=== PATIENT | female | born 1935 | race Caucasian/White ===

== ENCOUNTER → 2016-06-16 | Outpatient (CLI) | payer MEDICARE, OTHER | LOC: RAD 08:03 | PROVIDERS: ATTEND Orthopaedic Surgery | DX: T84.092A Other mechanical complication of internal right knee prosthesis, initial encounter (principal) | CPT/HCPCS: 78315; A9503; Q9969 ==

== ENCOUNTER 2017-04-17 15:41 | Emergency (ER) | payer MEDICARE, OTHER ==
--- NOTE | 2017-04-17 16:42 | ER Document Report ---
ED General - General Chief Complaint: Flu Symptoms Stated Complaint: FLU SYMPTOMS Time Seen by Provider: 04/17/17 15:46 Mode of Arrival: Medic Information source: Patient TRAVEL OUTSIDE OF THE [place] IN LAST 30 DAYS: No - HPI Notes: 81-year-old female presents with generalized malaise weakness and eventually nausea and vomiting after faith today. She has vomited multiple times. EMS brings her in after giving her Zofran 4 mg. She has had some dysuria and went to go get her Cipro refilled. 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 She denies any specific pain. No diarrhea. Some mild cough and chills but no objective fever. She denies chest pain or breathing difficulty. - Related Data Allergies/Adverse Reactions: No Known Allergies Allergy (Verified 04/17/17 16:11) Past Medical History - Social History Smoking Status: Never Smoker Family History: Reviewed & Not Pertinent Review of Systems - Review of Systems -: Yes All other systems reviewed and negative Physical Exam - Vital signs Vitals: Temp Pulse BP Pulse Ox 99.4 F 129 H 144/72 H 94 04/17/17 16:10 04/17/17 16:10 04/17/17 16:10 04/17/17 16:10 Interpretation: Tachycardic - Notes Notes: GENERAL: VS as per nursing doc. Well-appearing, well-nourished and in no acute distress. HEAD: Atraumatic, normocephalic. EYES: Pupils equal round and reactive to light, extraocular movements intact, sclera anicteric, no conjunctival injection or discharge. ENT: Nares patent, oropharynx clear without exudates, somewhat dry mucous membranes. NECK: Normal range of motion, supple without lymphadenopathy. LUNGS: Breath sounds clear to auscultation bilaterally and equal. No wheezes rales or rhonchi. HEART: Tachycardic but regular without murmurs. ABDOMEN: Soft, very mild generalized tenderness, normoactive bowel sounds. No guarding, no rebound. No masses appreciated. No [place] sign. BACK: No CVA tenderness. EXTREMITIES: No significant pitting edema NEUROLOGICAL: No meningeal signs.. Normal speech. Normal sensory and motor exams. No gross cerebellar abnormalities. PSYCH: Normal mood, normal affect. SKIN: Warm, dry, normal turgor. Course - Re-evaluation Re-evalutation: 04/17/17 19:39 Patient is feeling much better. Nausea is completely resolved. Abdomen is benign on recheck. She understands warning signs to watch for. At this time, we will discharge the patient with return precautions and follow-up recommendations discussed and understood. Verbal discharge instructions given at the bedside and opportunity for questions given and answered. Medication warnings reviewed. Patient and family is in agreement with this plan and has verbalized understanding of return precautions and the need for primary care follow-up in the next 24-48 hours. 04/17/17 20:00 - Vital Signs Vital signs: Temp Pulse Resp BP Pulse Ox 99.9 F 129 H 128/91 H 93 04/17/17 17:19 04/17/17 16:10 04/17/17 18:01 04/17/17 18:01 - Laboratory Result Diagrams: 04/17/17 17:45 04/17/17 18:15 Laboratory results interpreted by me: 04/17/17 04/17/17 04/17/17 16:07 17:45 18:15 WBC 18.6 H RDW 14.4 H Plt Count 130 L Seg Neuts % (Manual) 89 H Lymphocytes % (Manual) 4 L Monocytes % (Manual) 2 L Abs Neuts (Manual) 17.3 H Sodium 134.2 L Potassium 3.5 L Chloride 97 L Glucose 138 H Direct Bilirubin 0.5 H Urine Protein 100 H Urine Blood LARGE H Urine Nitrite POSITIVE H Ur Leukocyte Esterase LARGE H - Diagnostic Test Radiology reviewed: Image reviewed, Reports reviewed - No acute process noted. - EKG Interpretation by Me Rate: Tachycardia - Rate 116. Right bundle branch block. Nonspecific ST abnormalities but no clear ischemia otherwise. Discharge - Discharge Clinical Impression: Vomiting, UTI (urinary tract infection) Condition: Good Disposition: HOME, SELF-CARE Instructions: Antinausea Medication ([facility]), Urinary Tract Infection ([facility]), Vomiting ([facility]) Additional Instructions: Please contact your physician to arrange follow-up tomorrow. Start the antibiotics tomorrow. Return for any worsening or other concern, repetitive vomiting. A urine culture will take a couple of days to get the results back. May use the nausea medication, Zofran, as directed. Prescriptions: Ciprofloxacin HCl [Cipro 500 mg Tablet] 500 mg PO BID #20 tablet Ondansetron [Zofran Odt 4 mg Tablet] 1 - 2 tab PO Q4H PRN #15 tab.rapdis PRN Reason: For Nausea/Vomiting Referrals: ANDRE AMARO MD [Primary Care Provider] - Follow up as needed
[2017-04-17] MEDS ORDERED: NORMAL SALINE 1000 ML 1,000 ML IV ONE (16:44)
[2017-04-17 17:19] LABS: APPEARANCE,URINE CLOUDY; BILIRUBIN,URINE NEGATIVE (NEGATIVE); COLOR,URINE YELLOW; GLUCOSE, URINE NEGATIVE (NEGATIVE); KETONES,URINE NEGATIVE (NEGATIVE); LEUKOCYTE ESTERASE,URINE LARGE (NEGATIVE); NITRITE,URINE POSITIVE (NEGATIVE); PROTEIN,URINE 100 mg/dL (NEGATIVE); UROBILINOGEN,URINE NEGATIVE mg/dL (<2.0)
--- NOTE | 2017-04-17 17:23 | RADIOLOGY REPORT (SQ) ---
EXAM DESCRIPTION: CHEST PA/LAT COMPLETED DATE/TIME: 04/17/2017 5:09 pm REASON FOR STUDY: Fever COMPARISON: 06/15/2010. EXAM PARAMETERS: NUMBER OF VIEWS: two views TECHNIQUE: Digital Frontal and Lateral radiographic views of the chest acquired. RADIATION DOSE: NA LIMITATIONS: none FINDINGS: LUNGS AND PLEURA: No opacities, masses or pneumothorax. No pleural effusion. MEDIASTINUM AND HILAR STRUCTURES: No masses or contour abnormalities. HEART AND VASCULAR STRUCTURES: Heart normal size. No evidence for failure. BONES: No acute findings. HARDWARE: None in the chest. OTHER: No other significant finding. IMPRESSION: NO SIGNIFICANT RADIOGRAPHIC FINDING IN THE CHEST. TECHNICAL DOCUMENTATION: JOB ID: [id number] [employer]- All Rights Reserved
[2017-04-17] MEDS ORDERED: CEFTRIAXONE 1 GM/D5W RTU 1 GM/50 ML RTUPB IV ONE ×2 (17:52→18:46)
[2017-04-17 17:57] LABS: HEMATOCRIT 43.2 % (36.0-47.0); HEMOGLOBIN 14.8 g/dL (12.0-15.5); MEAN CORPUSCULAR HEMOGLOBIN 30.1 pg (27.0-33.4); MEAN CORPUSCULAR HGB CONC 34.3 g/dL (32.0-36.0); MEAN CORPUSCULAR VOLUME 88 fl (80-97); PLATELET COUNT 130 10^3/uL (150-450); RED BLOOD COUNT 4.92 10^6/uL (3.72-5.28); RED CELL DISTRIBUTION WIDTH 14.4 % (11.5-14.0); WHITE BLOOD COUNT 18.6 10^3/uL (4.0-10.5)
[2017-04-17 18:23] LABS: ABSOLUTE LYMPHOCYTES# (MANUAL) 0.7 10^3/uL (0.5-4.7); ABSOLUTE MONOCYTES # (MANUAL) 0.4 10^3/uL (0.1-1.4); ABSOLUTE NEUTROPHILS# (MANUAL) 17.3 10^3/uL (1.7-8.2); BAND NEUTROPHILS % (MANUAL) 4 % (3-5); BASOPHILS % (MANUAL) 0 % (0-2); EOSINOPHILS % (MANUAL) 1 % (0-6); LYMPHOCYTES % (MANUAL) 4 % (13-45); MONOCYTES % (MANUAL) 2 % (3-13); SEGMENTED NEUTROPHILS % (MAN) 89 % (42-78); TOTAL CELLS COUNTED 100
[2017-04-17 18:24] LABS: PLATELET CLUMPS PRESENT; PLATELET COMMENT ADEQUATE; RBC MORPHOLOGY COMMENT NORMO-CYTIC/CHROMIC
[2017-04-17 18:34] LABS: A TYPE INFLUENZA AG NEGATIVE (NEGATIVE); B INFLUENZA AG NEGATIVE (NEGATIVE)
[2017-04-17] MEDS ORDERED: CEFTRIAXONE INJ 1000 MG VIAL ONE ×2 (18:48→20:22)
[2017-04-17 19:21] LABS: ALANINE AMINOTRANSFERASE 39 U/L (9-52); ALBUMIN 4.1 g/dL (3.5-5.0); ALKALINE PHOSPHATASE 82 U/L (38-126); ANION GAP 12 (5-19); ASPARTATE AMINO TRANSFERASE 28 U/L (14-36); BILIRUBIN,DIRECT 0.5 mg/dL (0.0-0.4); BLOOD UREA NITROGEN 16 mg/dL (7-20); CALCIUM 9.8 mg/dL (8.4-10.2); CARBON DIOXIDE 25 mmol/L (22-30); CHLORIDE 97 mmol/L (98-107); GLUCOSE 138 mg/dL (75-110); LIPASE 293.2 U/L (23-300); POTASSIUM 3.5 mmol/L (3.6-5.0); SODIUM 134.2 mmol/L (137-145); TOTAL PROTEIN 6.4 g/dL (6.3-8.2)
[2017-04-17] MEDS ORDERED: CIPROFLOXACIN HCL 750 MG TABLET PO ONE (19:37)
[2017-04-17] MEDS ORDERED: ONDANSETRON 4 MG TAB.RAPDIS PO ONE (19:38)
--- NOTE | 2017-04-17 19:50 | EKG REPORT ---
SEVERITY:- ABNORMAL ECG - SINUS TACHYCARDIA RIGHT BUNDLE BRANCH BLOCK PROBABLE INFERIOR INFARCT, AGE INDETERMINATE : Confirmed by: Lei Ibrahim 17-Apr-2017 19:49:54
[2017-04-17 20:27] VITALS: BP 123/58
== END 2017-04-17 20:47 | disposition home or self-care (01) ==
LOC: ER 15:41
DX: N39.0 Urinary tract infection, site not specified (principal); R11.2 Nausea with vomiting, unspecified; R05 Cough; R53.81 Other malaise
CPT/HCPCS: 93005; 99284; 96365; 36415; 87040; 87086; 83690; 85025; 87088; 80053; 81001; 87186; 83605; 87804; 71046; 93010; A9270 ×2; J0696; J7030; J3490; S0119

== ENCOUNTER 2018-10-09 10:19 | Inpatient (IN) | payer MEDICARE, OTHER ==
--- NOTE | 2018-10-09 10:50 | RADIOLOGY REPORT (SQ) ---
EXAM DESCRIPTION: CT HEAD WITHOUT COMPLETED DATE/TIME: 10/09/2018 10:38 am REASON FOR STUDY: charlottediontee s/s COMPARISON: None. TECHNIQUE: Axial images acquired through the brain without intravenous contrast. Images reviewed wi th bone, brain and subdural windows. Additional sagittal and coronal reconstructions were generated. Images stored on PACS. All CT scanners at this facility use dose modulation, iterative reconstruction, and/or weight based d osing when appropriate to reduce radiation dose to as low as reasonably achievable (ALARA). [facility]: Dose Right [facility]: CareDose [facility]: Dose Right [facility]: Teradose 4D [facility]: Portable Internet RADIATION DOSE: CT Rad equipment meets quality standard of care and radiation dose reduction techniq ues were employed. CTDIvol: 53.2 mGy. DLP: 1017 mGy-cm. mGy. LIMITATIONS: None. FINDINGS: VENTRICLES: Prominent. CEREBRUM: No masses. No hemorrhage. No midline shift. Areas of low density in the white matter mos t likely due to chronic micro-vascular ischemic change. No evidence for acute infarction. CEREBELLUM: No masses. No hemorrhage. No alteration of density. No evidence for acute infarction. EXTRAAXIAL SPACES: Mild age-related involutional change. No fluid collections. No masses. ORBITS AND GLOBE: No intra- or extraconal masses. Normal contour of globe without masses. CALVARIUM: No fracture. PARANASAL SINUSES: No fluid or mucosal thickening. SOFT TISSUES: No mass or hematoma. OTHER: No other significant finding. IMPRESSION: MILD CHRONIC CHANGES OF ATROPHY AND MICROVASCULAR ISCHEMIA. NO ACUTE PROCESS. EVIDENCE OF ACUTE STROKE: NO. COMMENT: Pertinent positive or negative findings of the imaging study reported as a CRITICAL EXAM t o Dr Dudley at10:40 on 10/09/2018. Category of Critical Exam: Stroke alert. TECHNICAL DOCUMENTATION: JOB ID: [id number] Quality ID # [id number]: Final reports with documentation of one or more dose reduction techniques (e.g., Au tomated exposure control, adjustment of the mA and/or kV according to patient size, use of iterative reconstruction technique) 2010 [employer]- All Rights Reserved Reading location - IP/workstation name: [email or web address]
[2018-10-09 10:59] LABS: ABSOLUTE EOSINOPHILS # (AUTO) 0.1 10^3/uL (0.0-0.6); ABSOLUTE LYMPHOCYTES (AUTO) 1.3 10^3/uL (0.5-4.7); ABSOLUTE MONOCYTES (AUTO) 0.7 10^3/uL (0.1-1.4); ABSOLUTE NEUT (AUTO) 5.5 10^3/uL (1.7-8.2); BASOPHILS % (AUTO) 0.4 % (0-2); EOSINOPHILS % (AUTO) 0.7 % (0-6); HEMATOCRIT 44.9 % (36.0-47.0); HEMOGLOBIN 15.3 g/dL (12.0-15.5); LYMPHOCYTES % (AUTO) 16.7 % (13-45); MEAN CORPUSCULAR HEMOGLOBIN 29.9 pg (27.0-33.4); MEAN CORPUSCULAR HGB CONC 34.2 g/dL (32.0-36.0); MEAN CORPUSCULAR VOLUME 88 fl (80-97); MONOCYTES % (AUTO) 9.8 % (3-13); PLATELET COUNT 134 10^3/uL (150-450); RED BLOOD COUNT 5.13 10^6/uL (3.72-5.28); RED CELL DISTRIBUTION WIDTH 14.3 % (11.5-14.0); SEGMENTED NEUTROPHILS % (AUTO) 72.4 % (42-78); TOTAL CELLS COUNTED % (AUTO) 100 %; WHITE BLOOD COUNT 7.5 10^3/uL (4.0-10.5)
[2018-10-09 11:02] LABS: INTERNATIONAL RATION (INR) 0.99
[2018-10-09 11:03] LABS: PARTIAL THROMBOPLASTIN TIME 26.5 SEC (23.5-35.8)
[2018-10-09 11:05] LABS: PROTHROMBIN TIME 13.1 SEC (11.4-15.4)
--- NOTE | 2018-10-09 11:25 | RADIOLOGY REPORT (SQ) ---
EXAM DESCRIPTION: CHEST SINGLE VIEW COMPLETED DATE/TIME: 10/09/2018 10:39 am REASON FOR STUDY: destinee s/s COMPARISON: None. EXAM PARAMETERS: NUMBER OF VIEWS: One view. TECHNIQUE: Single frontal radiographic view of the chest acquired. RADIATION DOSE: NA LIMITATIONS: None. FINDINGS: LUNGS AND PLEURA: No opacities, masses or pneumothorax. No pleural effusion. MEDIASTINUM AND HILAR STRUCTURES: No masses. Contour normal. HEART AND VASCULAR STRUCTURES: Heart normal in size. Normal vasculature. BONES: No acute findings. HARDWARE: None in the chest. OTHER: No other significant finding. IMPRESSION: NO ACUTE RADIOGRAPHIC FINDING IN THE CHEST. TECHNICAL DOCUMENTATION: JOB ID: [id number] [employer]- All Rights Reserved Reading location - IP/workstation name: [email or web address]
--- NOTE | 2018-10-09 12:13 | ER Document Report ---
ED General - General Chief Complaint: Weakness Stated Complaint: WEAKNESS Time Seen by Provider: 10/09/18 11:29 Notes: Patient is a 82-year-old female with history of CVA and borderline diabetes that presents to the emergency department for chief complaint of left-sided weakness. Patient states that around 4 AM this morning, she got up and felt like her legs gave out from under her, and she fell onto her buttocks. She denies having any head injury or neck injury, but states that she is been having weakness in her left arm and leg at that time, and had left-sided facial numbness and tingling as well as slurred speech. Her symptoms have improved since then, but she still having numbness and weakness in her left leg. She states she is had a stroke in the past, but does not recall what symptoms she had but as many years ago. She denies history of atrial fibrillation or being on any blood thinners currently. Denies having any chest pain, shortness of breath, difficulty breathing, nausea, vomiting or abdominal pain. She describes having a mild headache at this time scrubs as a 2 out of 10, no other complaints. Past Medical History: Diabetes mellitus, history of CVA Past Surgical History: Cholecystectomy Social History: Denies tobacco, alcohol or drug use. Family History: Reviewed and noncontributory for presenting illness Allergies: Reviewed, see documented allergy list. REVIEW OF SYSTEMS: Other than noted above, the 12 point review of systems was reviewed with the patient and were negative, all pertinent findings are included in the HPI. PHYSICAL EXAMINATION: Vital signs reviewed, nursing noted reviewed. GENERAL: Elderly female, no acute distress. HEAD: Atraumatic, normocephalic. EYES: Eyes appear normal, extraocular movements intact, sclera anicteric, conjunctiva are normal. PERRLA ENT: nares patent, oropharynx clear without exudates. Moist mucous membranes. NECK: Normal range of motion, supple without lymphadenopathy LUNGS: Breath sounds clear to auscultation bilaterally and equal. No wheezes rales or rhonchi. HEART: Regular rate and rhythm without murmurs ABDOMEN: Soft, nontender, normoactive bowel sounds. No rebound, guarding, or rigidity. No masses appreciated. EXTREMITIES: Nontender, good range of motion, no pitting or edema. NEUROLOGICAL: Noted to have decreased sensation in the left lower extremity, and weakness with flexion at the hip, her NIH stroke scale score: 3, she does have movement against gravity, is able to flex and extend at the ankle. She does have sensory discrepancies with both light and sharp touch in the lower extremities. No noted facial droop, or dysarthria or aphasia, normal vtzcry-[id number]-tqitba testing and heel mclean testing. No appreciated inattention. PSYCH: Normal mood, normal affect. SKIN: Warm, Dry, normal turgor, no rashes or lesions noted on exposed skin TRAVEL OUTSIDE OF THE [place] IN LAST 30 DAYS: No - Related Data Allergies/Adverse Reactions: No Known Allergies Allergy (Verified 04/17/17 16:11) Past Medical History - Social History Smoking Status: Former Smoker Frequency of alcohol use: None Drug Abuse: None Family History: Reviewed & Not Pertinent Patient has suicidal ideation: No Patient has homicidal ideation: No - Past Medical History Cardiac Medical History: Reports: Hx Hypertension Endocrine Medical History: Reports: Hx Diabetes Mellitus Type 2 - prediabetic Renal/ Medical History: Denies: Hx Peritoneal Dialysis Past Surgical History: Reports: Hx Orthopedic Surgery - bilater feet, right knee, left arm, right shoulder Physical Exam - Vital signs Vitals: Resp Pulse Ox 14 98 10/09/18 10:23 10/09/18 10:23 Course - Re-evaluation Re-evalutation: Patient seen and examined vital signs reviewed. Laboratory data and imaging were ordered as appropriate for the patient's presenting symptoms and complaint, with consideration of any critical or life threatening conditions that may be associated with their obtained history and exam as noted above. Results were reviewed when available and demonstrated essentially unremarkable blood work, negative troponin, CT imaging of the head was negative, and a negative chest x-ray. The patient was re-evaluated and was stable, seeming her symptoms were improving from earlier, but she does have some residual deficits, concerning for acute C VA. Evaluation was most consistent with acute CVA, with left lower extremity weakness and numbness. She is out of the window for TPA, given that her symptoms occurred at 4 AM this morning, her last seen normal is likely earlier than that, and her symptoms are improving, her blood pressure was noted to be elevated, in the 200 systolic, will not treat at this time, for permissive hypertension. Results were discussed with the patient at this point after careful consideration I feel that that patient should be admitted to the hospital. This was discussed with the patient that it is in the best interest for their care to be admitted for further evaluation and management. Patient agreed with this plan of care. A call was placed to the admitting provider Cindy Ellsworth CNP who graciously accepted the patient onto their service. *Note is created using voice recognition software and may contain spelling, syntax or grammatical errors. Laboratory 10/09/18 10/09/18 10/09/18 10:48 10:48 10:48 WBC 7.5 RBC 5.13 Hgb 15.3 Hct 44.9 MCV 88 MCH 29.9 MCHC 34.2 RDW 14.3 H Plt Count 134 L Seg Neutrophils % 72.4 Lymphocytes % 16.7 Monocytes % 9.8 Eosinophils % 0.7 Basophils % 0.4 Absolute Neutrophils 5.5 Absolute Lymphocytes 1.3 Absolute Monocytes 0.7 Absolute Eosinophils 0.1 Absolute Basophils 0.0 PT 13.1 INR 0.99 APTT 26.5 Sodium Cancelled Potassium Cancelled Chloride Cancelled Carbon Dioxide Cancelled Anion Gap Cancelled BUN Cancelled Creatinine Cancelled Est GFR ( Amer) Cancelled Est GFR (Non-Af Amer) Cancelled Glucose Cancelled POC Glucose Calcium Cancelled Total Bilirubin Cancelled Direct Bilirubin Cancelled Neonat Total Bilirubin Cancelled Neonat Direct Bilirubin Cancelled Neonat Indirect Bili Cancelled AST Cancelled ALT Cancelled Alkaline Phosphatase Cancelled Creatine Kinase Cancelled CK-MB (CK-2) Troponin I Total Protein Cancelled Albumin Cancelled 10/09/18 10/09/18 10/09/18 10:48 11:12 11:35 WBC RBC Hgb Hct MCV MCH MCHC RDW Plt Count Seg Neutrophils % Lymphocytes % Monocytes % Eosinophils % Basophils % Absolute Neutrophils Absolute Lymphocytes Absolute Monocytes Absolute Eosinophils Absolute Basophils PT INR APTT Sodium 135.8 L Potassium 4.4 Chloride 102 Carbon Dioxide 26 Anion Gap 8 BUN 16 Creatinine 0.80 Est GFR ( Amer) > 60 Est GFR (Non-Af Amer) > 60 Glucose 107 POC Glucose 115 H Calcium 10.4 H Total Bilirubin 0.6 Direct Bilirubin 0.4 Neonat Total Bilirubin Not Reportable Neonat Direct Bilirubin Not Reportable Neonat Indirect Bili Not Reportable AST 37 H ALT 27 Alkaline Phosphatase 76 Creatine Kinase 138 H CK-MB (CK-2) Cancelled Troponin I Cancelled Total Protein 7.2 Albumin 4.6 10/09/18 11:35 WBC RBC Hgb Hct MCV MCH MCHC RDW Plt Count Seg Neutrophils % Lymphocytes % Monocytes % Eosinophils % Basophils % Absolute Neutrophils Absolute Lymphocytes Absolute Monocytes Absolute Eosinophils Absolute Basophils PT INR APTT Sodium Potassium Chloride Carbon Dioxide Anion Gap BUN Creatinine Est GFR ( Amer) Est GFR (Non-Af Amer) Glucose POC Glucose Calcium Total Bilirubin Direct Bilirubin Neonat Total Bilirubin Neonat Direct Bilirubin Neonat Indirect Bili AST ALT Alkaline Phosphatase Creatine Kinase CK-MB (CK-2) 1.31 Troponin I < 0.012 Total Protein Albumin Chest X-Ray 10/09/18 10:24 IMPRESSION: NO ACUTE RADIOGRAPHIC FINDING IN THE CHEST. Head CT 10/09/18 10:24 IMPRESSION: MILD CHRONIC CHANGES OF ATROPHY AND MICROVASCULAR ISCHEMIA. NO ACUTE PROCESS. EVIDENCE OF ACUTE STROKE: NO. - Vital Signs Vital signs: Temp Pulse Resp BP Pulse Ox 98.1 F 83 25 H 160/92 H 99 10/09/18 11:34 10/09/18 10:57 10/09/18 12:02 10/09/18 13:09 10/09/18 12:02 - Laboratory Result Diagrams: 10/09/18 10:48 10/09/18 11:35 Laboratory results interpreted by me: 10/09/18 10/09/18 10/09/18 10:48 11:12 11:35 RDW 14.3 H Plt Count 134 L Sodium 135.8 L POC Glucose 115 H Calcium 10.4 H AST 37 H Creatine Kinase 138 H - EKG Interpretation by Me Additional EKG results interpreted by me: EKG demonstrates sinus rhythm with a ventricular rate of 79 bpm, normal axis, presence of right bundle branch block, QTC 459 ms, there is ST depression noted in leads aVF, V3, V4, T wave inversion in lead III, this is compared to prior EKG from 04/17/2017, without significant change. Discharge - Discharge Clinical Impression: Acute CVA (cerebrovascular accident), Left leg weakness, Paresthesia Condition: Stable Disposition: ADMITTED INPATIENT Admitting Provider: Neeraj (Hospitalist) - Cindy Ellsworth [facility] Unit Admitted: [facility]
[2018-10-09 12:14] LABS: ALANINE AMINOTRANSFERASE 27 U/L (9-52); ALBUMIN 4.6 g/dL (3.5-5.0); ALKALINE PHOSPHATASE 76 U/L (38-126); ANION GAP 8 (5-19); ASPARTATE AMINO TRANSFERASE 37 U/L (14-36); BILIRUBIN,DIRECT 0.4 mg/dL (0.0-0.4); BILIRUBIN,TOTAL 0.6 mg/dL (0.2-1.3); BLOOD UREA NITROGEN 16 mg/dL (7-20); CALCIUM 10.4 mg/dL (8.4-10.2); CARBON DIOXIDE 26 mmol/L (22-30); CHLORIDE 102 mmol/L (98-107); CREATINE KINASE 138 U/L (30-135); GLUCOSE 107 mg/dL (75-110); POTASSIUM 4.4 mmol/L (3.6-5.0); SODIUM 135.8 mmol/L (137-145); TOTAL PROTEIN 7.2 g/dL (6.3-8.2)
[2018-10-09 12:24] LABS: CREATINE KINASE MB 1.31 ng/mL (<4.55)
[2018-10-09 12:30] LABS: TROPONIN I < 0.012 ng/mL
[2018-10-09] MEDS ORDERED: HYDRALAZINE HCL INJ/PF 20 MG/1 ML SDV IV PRN (13:05)
[2018-10-09] MEDS ORDERED: ACETAMINOPHEN 325 MG TABLET PO PRN (13:06)
[2018-10-09] MEDS ORDERED: TRAMADOL HCL 50 MG TABLET PO PRN (13:06)
[2018-10-09] MEDS ORDERED: MAGNESIUM HYDROXIDE SUSP 30 ML UDCUP PO PRN (13:06)
[2018-10-09] MEDS ORDERED: ONDANSETRON HCL INJ/PF 4 MG/2 ML SDV IV PRN (13:06)
[2018-10-09] MEDS ORDERED: DOCUSATE SODIUM 100 MG CAPSULE PO PRN (13:06)
[2018-10-09] MEDS: HEPARIN SOD (PORCINE) 5,000 UNIT/ML 1 ML VIAL SUBCUT SCH ×2 (13:57→22:05)
[2018-10-09] MEDS: LISINOPRIL 5 MG TABLET PO SCH (13:57)
[2018-10-09] MEDS ORDERED: ATORVASTATIN CALCIUM 80 MG TABLET PO SCH ×2 (14:00→22:00)
--- NOTE | 2018-10-09 16:10 | RADIOLOGY REPORT (SQ) ---
EXAM DESCRIPTION: MRI HEAD WITHOUT COMPLETED DATE/TIME: 10/09/2018 3:30 pm REASON FOR STUDY: TIA/CVA; aphasia, Lt side weakness COMPARISON: Earlier CT TECHNIQUE: Multiplanar imaging includes non-contrasted T1, T2, FLAIR, and diffusion with ADC map seq uences. Images stored on PACS. LIMITATIONS: None. FINDINGS: ANATOMY: No anomalies. Normal vascular flow voids. Pituitary fossa normal. CSF SPACES: Atrophy induced prominence of ventricles and CSF spaces. CEREBRUM: High signal intensity lesions scattered throughout the white matter on FLAIR imaging with d istribution suggesting micro-vascular ischemic changes. No evidence of hemorrhage, mass, or extraaxi al fluid collection. POSTERIOR FOSSA: Encephalomalacia and posterior-lateral right lobe of the cerebellum. No hemorrhage. No edema, masses or mass effect. Internal auditory canals, cerebello-pontine angles, mastoids vimal l. DIFFUSION IMAGING: Negative for acute or sub-acute infarction. ORBITS: No masses. Globes normal. PARANASAL SINUSES: No fluid levels. Mucosa normal. OTHER: No other significant finding. IMPRESSION: Negative for acute or sub-acute infarction. EVIDENCE OF ACUTE STROKE: NO. TECHNICAL DOCUMENTATION: JOB ID: [id number] [place]-[id number] 2010 [employer]- All Rights Reserved Reading location - IP/workstation name: [email or web address]
--- NOTE | 2018-10-09 16:33 | RADIOLOGY REPORT (SQ) ---
EXAM DESCRIPTION: CAROTID DOPPLER COMPLETED DATE/TIME: 10/09/2018 4:07 pm REASON FOR STUDY: TIA/CVA COMPARISON: None. TECHNIQUE: Grayscale ultrasound, Doppler velocity and spectra, and color Doppler images acquired of the extra-cranial carotid and vertebral arteries. Images stored on PACS. LIMITATIONS: None. FINDINGS: RIGHT CAROTID CCA Velocities: Within normal limits. ICA Velocities Peak systolic 104 cm/s. End diastolic 26 cm/s. Proximal ICA/CCA peak systolic ratio 1.7. Spectra normal. Mild plaque. LEFT CAROTID CCA Velocities: Within normal limits. ICA Velocities Peak systolic 105 cm/s. End diastolic 27 cm/s. Proximal ICA/CCA peak systolic ratio 1.6. Spectra normal. Mild -moderate calcified plaque. VERTEBRAL ARTERIES: Antegrade flow. Normal waveforms. SUBCLAVIAN ARTERIES: No finding. OTHER: Left ECA 233 cm/s velocity. IMPRESSION: NO HEMODYNAMICALLY SIGNIFICANT ICA STENOSIS.Left ECA 233 cm/s velocity. COMMENT: Quality ID #[id number]: Velocity criteria are extrapolated from the diameter data as defined by t he Society of Radiologists in Ultrasound Consensus Conference. Radiology 2003: 229; 340-346. TECHNICAL DOCUMENTATION: JOB ID: [id number] [place]-72 2010 [employer]- All Rights Reserved Reading location - IP/workstation name: [email or web address]
[2018-10-09] MEDS ORDERED: DEXTROSE 40% GEL 15 GM TUBE PO PRN ×2 (18:16)
[2018-10-09] MEDS ORDERED: DEXTROSE 50%-WATER 25 GM/50 ML DISP.SYRIN IV PRN ×2 (18:16)
[2018-10-09] MEDS ORDERED: GLUCAGON,HUMAN RECOMB 1 MG INJ IM PRN (18:16)
--- NOTE | 2018-10-09 18:22 | PDOC H&P ---
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 Onset was noted this morning upon waking; last known well would have been prior to bed last night. She is outside [facility] window. Symptoms have improved slightly since arrival to the emergency department; expressive aphasia does appear to wax and wane. Evaluation in the emergency department revealed hypertensive emergency with blood pressure 192/124, unremarkable laboratory evaluation, benign chest x-ray, EKG demonstrated RBBB unchanged from prior, and head CT was negative for acute CVA. She was referred to the hospitalist service for admission and management of hypertensive emergency TIA/CVA work-up. Past Medical History Cardiac Medical History: Reports: Hypertension Denies: Congestive Heart Failure, Coronary Artery Disease, Myocardial Infarction, Hyperlipidema Pulmonary Medical History: Reports: None EENT Medical History: Reports: None Neurological Medical History: Reports: Ischemic CVA Endocrine Medical History: Reports: Diabetes Mellitus Type 2 Renal/ Medical History: Reports: None Malignancy Medical History: Reports: None GI Medical History: Reports: Gastroesophageal Reflux Disease Musculoskeltal Medical History: Reports: None Skin Medical History: Reports: Eczema Psychiatric Medical History: Denies: Depression, Tobacco Dependency Traumatic Medical History: Reports: None Hematology: Reports: None Infectious Medical History: Reports: None Past Surgical History Past Surgical History: Reports: Cholecystectomy, Orthopedic Surgery - bilater feet, right knee, left arm, right shoulder Social History Information Source: Patient Lives with: Family Smoking Status: Former Smoker Number of Years Smokin Frequency of Alcohol Use: None Hx Recreational Drug Use: No Drugs: None Hx Prescription Drug Abuse: No - Advance Directive Resuscitation Status: Full Code Surrogate healthcare decision maker:: Family History Family History: Reviewed & Not Pertinent Parental Family History Reviewed: Yes Children Family History Reviewed: Yes Sibling(s) Family History Reviewed.: Yes Medication/Allergy Home Medications: Esomeprazole Magnesium 40 mg PO DAILY 10/09/18 Fexofenadine HCl [Aisha Allergy] 180 mg PO DAILY 10/09/18 Mirabegron [Myrbetriq] 25 mg PO DAILY 10/09/18 Allergies/Adverse Reactions: No Known Allergies Allergy (Verified 04/17/17 16:11) Review of Systems Constitutional: ABSENT: chills, fever(s), headache(s), weight gain, weight loss Eyes: ABSENT: visual disturbances Ears: ABSENT: hearing changes Cardiovascular: ABSENT: chest pain, dyspnea on exertion, edema, orthropnea, palpitations Respiratory: ABSENT: cough, hemoptysis Gastrointestinal: ABSENT: abdominal pain, constipation, diarrhea, hematemesis, hematochezia, nausea, vomiting Genitourinary: ABSENT: dysuria, hematuria Musculoskeletal: ABSENT: joint swelling Integumentary: ABSENT: rash, wounds Neurological: PRESENT: abnormal gait, abnormal speech, focal weakness, lack of coordination. ABSENT: confusion, dizziness, syncope Psychiatric: ABSENT: anxiety, depression, homidical ideation, suicidal ideation Endocrine: ABSENT: cold intolerance, heat intolerance, polydipsia, polyuria Hematologic/Lymphatic: ABSENT: easy bleeding, easy bruising Physical Exam Vital Signs: Temp Pulse Resp BP Pulse Ox 98.2 F 82 16 160/78 H 98 10/09/18 14:48 10/09/18 14:53 10/09/18 14:53 10/09/18 14:53 10/09/18 14:53 Intake & Output 10/08/18 10/09/18 10/10/18 06:59 06:59 06:59 Weight 85.8 kg General appearance: PRESENT: no acute distress, cooperative, obese, well- developed, well-nourished Head exam: PRESENT: atraumatic, normocephalic Eye exam: PRESENT: conjunctiva pink, EOMI, PERRLA. ABSENT: scleral icterus Ear exam: PRESENT: normal external ear exam Mouth exam: PRESENT: moist, tongue midline Neck exam: ABSENT: carotid bruit, JVD, lymphadenopathy, thyromegaly Respiratory exam: PRESENT: clear to auscultation ambreen, symmetrical, unlabored. ABSENT: rales, rhonchi, wheezes Cardiovascular exam: PRESENT: RRR, +S1, +S2. ABSENT: diastolic murmur, rubs, systolic murmur Pulses: PRESENT: normal dorsalis pedis pul Vascular exam: PRESENT: normal capillary refill GI/Abdominal exam: PRESENT: normal bowel sounds, soft. ABSENT: distended, guarding, mass, organolmegaly, rebound, tenderness Rectal exam: PRESENT: deferred Extremities exam: PRESENT: full ROM. ABSENT: calf tenderness, clubbing, pedal edema Neurological exam: PRESENT: alert, awake, oriented to person, oriented to place, oriented to time, oriented to situation, CN II-XII grossly intact, aphasic - Intermittent expressive aphasia; difficulty with word finding. Speech is clear., other - No facial asymmetry noted. No significant disparity between left and right extremities; patient reports she has returned to her baseline left-sided weakness related to prior CVA. ABSENT: motor sensory deficit Psychiatric exam: PRESENT: appropriate affect, normal mood. ABSENT: homicidal ideation, suicidal ideation Skin exam: PRESENT: dry, intact, warm. ABSENT: cyanosis, rash Results Laboratory Results: 10/09/18 10:48 10/09/18 11:35 10/09/18 10/09/18 10/09/18 10:48 10:48 11:35 WBC 7.5 RBC 5.13 Hgb 15.3 Hct 44.9 MCV 88 MCH 29.9 MCHC 34.2 RDW 14.3 H Plt Count 134 L Seg Neutrophils % 72.4 Lymphocytes % 16.7 Monocytes % 9.8 Eosinophils % 0.7 Basophils % 0.4 Absolute Neutrophils 5.5 Absolute Lymphocytes 1.3 Absolute Monocytes 0.7 Absolute Eosinophils 0.1 Absolute Basophils 0.0 Sodium Cancelled 135.8 L Potassium Cancelled 4.4 Chloride Cancelled 102 Carbon Dioxide Cancelled 26 Anion Gap Cancelled 8 BUN Cancelled 16 Creatinine Cancelled 0.80 Est GFR ( Amer) Cancelled > 60 Est GFR (Non-Af Amer) Cancelled > 60 Glucose Cancelled 107 Calcium Cancelled 10.4 H Total Bilirubin Cancelled 0.6 AST Cancelled 37 H ALT Cancelled 27 Alkaline Phosphatase Cancelled 76 Total Protein Cancelled 7.2 Albumin Cancelled 4.6 10/09/18 10/09/18 10/09/18 10:48 10:48 11:35 Creatine Kinase Cancelled 138 H CK-MB (CK-2) Cancelled Troponin I Cancelled 10/09/18 11:35 Creatine Kinase CK-MB (CK-2) 1.31 Troponin I < 0.012 Impressions: Head MRI 10/09/18 00:00 IMPRESSION: Negative for acute or sub-acute infarction. EVIDENCE OF ACUTE STROKE: NO. Chest X-Ray 10/09/18 10:24 IMPRESSION: NO ACUTE RADIOGRAPHIC FINDING IN THE CHEST. Head CT 10/09/18 10:24 IMPRESSION: MILD CHRONIC CHANGES OF ATROPHY AND MICROVASCULAR ISCHEMIA. NO ACUTE PROCESS. EVIDENCE OF ACUTE STROKE: NO. Carotid Doppler Study 10/09/18 13:10 IMPRESSION: NO HEMODYNAMICALLY SIGNIFICANT ICA STENOSIS.Left ECA 233 cm/s velocity. Assessment and Plan - Diagnosis (1) Hypertensive emergency Is this a current diagnosis for this admission?: Yes Plan: Patient was admitted with triple of her triple blood pressure; denies prior history of hypertension. 192/124 -235/[address] negative for acute CVA. Follow-up head MRI also negative; does demonstrate chronic microvascular ischemic changes. Patient is admitted to the medical floor and continuous cardiac telemetry. Has acute CVA has been ruled out; do not need to allow for permissive hypertension. She is started on lisinopril daily. IV hydralazine as needed for blood pressure control. Cardiac diet (2) TIA (transient ischemic attack) Is this a current diagnosis for this admission?: Yes Plan: Head CT and head MRI are negative for acute CVA; do demonstrate chronic microvascular ischemic changes. Echocardiogram is negative for hemodynamically significant stenosis. Patient is admitted to [facility] on continuous cardiac telemetry. Hypertension managed as above. She is started on daily aspirin and statin therapy. We will risk stratify with lipid panel, A1c, and thyroid panel with a.m. lab work. PT/OT/ST consultations are requested. Discharge planning is requested. (3) Diabetes Qualifiers: Diabetes mellitus type: type 2 Diabetes mellitus supervisor intermediates insulin use: without supervisor intermediates use Is this a current diagnosis for this admission?: Yes Plan: Patient endorses a history of diabetes mellitus; does not appear that she is on home medications. She is placed on a cardiac/consistent carb diet. We will check A1c with a.m. lab work. Accu-Cheks before meals and at bedtime with sliding scale insulin coverage. Hypoglycemia protocol in place. (4) Expressive aphasia Is this a current diagnosis for this admission?: Yes Plan: Likely secondary to hypertensive emergency. Symptoms are waxing and waning but overall improved as compared to her time of arrival to the emergency department. Management of hypertension and evaluation for TIA/CVA as above. Speech therapy is consulted. (5) Left leg weakness Is this a current diagnosis for this admission?: Yes Plan: Likely secondary to hypertensive emergency. Management of hypertension and evaluation for TIA/CVA as above. Physical therapy/Occupational Therapy are consulted. - Time Time Spent with patient: 35 or more minutes Medications reviewed and adjusted accordingly: Yes Anticipated discharge: Home with Homehealth Within: within 24 hours
[2018-10-09] MEDS: ATORVASTATIN CALCIUM 80 MG TABLET PO SCH (22:04)
[2018-10-09] MEDS: ROPINIROLE HCL 0.25 MG TABLET PO PRN (22:04)
[2018-10-09] MEDS: FAMOTIDINE 20 MG TABLET PO SCH (22:04)
[2018-10-09] MEDS: INSULIN LISPRO 100 UNIT/ML 3 ML VIAL SUBCUT SCH (22:06)
[2018-10-10 05:05] LABS: HEMATOCRIT 40.5 % (36.0-47.0); HEMOGLOBIN 13.7 g/dL (12.0-15.5); MEAN CORPUSCULAR HEMOGLOBIN 29.8 pg (27.0-33.4); MEAN CORPUSCULAR HGB CONC 33.9 g/dL (32.0-36.0); MEAN CORPUSCULAR VOLUME 88 fl (80-97); PLATELET COUNT 108 10^3/uL (150-450); RED BLOOD COUNT 4.61 10^6/uL (3.72-5.28); RED CELL DISTRIBUTION WIDTH 14.4 % (11.5-14.0); WHITE BLOOD COUNT 4.8 10^3/uL (4.0-10.5)
[2018-10-10] MEDS: HEPARIN SOD (PORCINE) 5,000 UNIT/ML 1 ML VIAL SUBCUT SCH ×3 (05:18→23:03)
[2018-10-10 05:26] LABS: ANION GAP 9 (5-19); BLOOD UREA NITROGEN 14 mg/dL (7-20); CALCIUM 9.7 mg/dL (8.4-10.2); CARBON DIOXIDE 27 mmol/L (22-30); CHLORIDE 99 mmol/L (98-107); CHOLESTEROL 152.52 mg/dL (0-200); GLUCOSE 111 mg/dL (75-110); POTASSIUM 4.1 mmol/L (3.6-5.0); SODIUM 135.3 mmol/L (137-145); TRIGLYCERIDES 157 mg/dL (<150)
[2018-10-10 05:37] LABS: DIRECT LDL 88 mg/dL (<100)
[2018-10-10 05:40] LABS: VLDL CHOLESTEROL 31.4 mg/dL (10-31)
[2018-10-10] MEDS: INSULIN LISPRO 100 UNIT/ML 3 ML VIAL SUBCUT SCH ×4 (08:27→23:03)
[2018-10-10] MEDS ORDERED: (PENDING PHARMACY ID) (Esomeprazole Magnesium [Esomeprazole Magnesium] 40 MG) PO SCH (10:00)
[2018-10-10] MEDS ORDERED: CLOPIDOGREL BISULFATE 75 MG TABLET PO SCH (10:00)
[2018-10-10] MEDS ORDERED: (PENDING PHARMACY ID) (Fexofenadine Hcl [Allegra Allergy] 180 MG) PO SCH (10:00)
[2018-10-10] MEDS ORDERED: (PENDING PHARMACY ID) (Mirabegron [Myrbetriq] 25 MG) PO SCH (10:00)
[2018-10-10] MEDS: ASPIRIN 81 MG TABLET, ENT COATED PO SCH (11:03)
[2018-10-10] MEDS: LORATADINE 10 MG TABLET PO SCH (11:03)
[2018-10-10] MEDS: PANTOPRAZOLE SODIUM 40 MG TABLET.DR PO SCH (11:03)
[2018-10-10] MEDS: FAMOTIDINE 20 MG TABLET PO SCH ×2 (11:03→21:27)
[2018-10-10] MEDS: LISINOPRIL 5 MG TABLET PO SCH (11:03)
--- NOTE | 2018-10-10 17:08 | Progress Note Acknowledgement ---
Progress Note Acknowledgement Progess Note Acknowledgement: I, the undersigned member of the medical staff with appropriate privileges and with supervisory authority over Cindy Ellsworth, a [facility] allied health professional, acknowledge that I have reviewed the progress notes entered on this patient, and in my professional judgment believe that the assessment made and/or any care evidenced was appropriate
[2018-10-10] MEDS ORDERED: LISINOPRIL 5 MG TABLET PO ONE (17:11)
--- NOTE | 2018-10-10 17:19 | PDOC PROGRESS REPORT ---
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 Patient was seen on morning rounds. She was found sitting up in the recliner on room air. She reports continued left-sided weakness, worse than her usual, but overall improved from yesterday. She also reports intermittent expressive aphasia, although this is improved as well. Patient met with physical therapy this morning; interested in option for acute rehabilitation. She denies fever, chills, headache, dizziness, chest pain, palpitations, dyspnea, orthopnea, cough, abdominal pain, nausea vomiting and diarrhea. She has no new questions or concerns. No concerns per nursing. Reason For Visit: TIA, CVA,APHASIA,LT SIDE WEAKNESS Physical Exam Vital Signs: Temp Pulse Resp BP Pulse Ox 97.9 F 69 18 184/53 H 98 10/10/18 16:17 10/10/18 16:17 10/10/18 16:17 10/10/18 16:17 10/10/18 16:17 Intake & Output 10/09/18 10/10/18 10/11/18 06:59 06:59 06:59 Intake Total 480 Output Total 850 Balance -370 Weight 83.8 kg General appearance: PRESENT: no acute distress, cooperative, well-developed, well-nourished - overweight Head exam: PRESENT: atraumatic, normocephalic Eye exam: PRESENT: conjunctiva pink, EOMI, PERRLA. ABSENT: scleral icterus Mouth exam: PRESENT: moist, tongue midline Neck exam: ABSENT: carotid bruit, JVD, lymphadenopathy, thyromegaly Respiratory exam: PRESENT: clear to auscultation ambreen, symmetrical, unlabored. ABSENT: rales, rhonchi, wheezes Cardiovascular exam: PRESENT: RRR, +S1, +S2. ABSENT: diastolic murmur, rubs, systolic murmur Pulses: PRESENT: normal dorsalis pedis pul Vascular exam: PRESENT: normal capillary refill GI/Abdominal exam: PRESENT: normal bowel sounds, soft. ABSENT: distended, guarding, mass, organolmegaly, rebound, tenderness Rectal exam: PRESENT: deferred Extremities exam: PRESENT: full ROM. ABSENT: calf tenderness, clubbing, pedal edema Neurological exam: PRESENT: alert, awake, oriented to person, oriented to place, oriented to time, oriented to situation, CN II-XII grossly intact, other - No facial asymmetry noted. Speech is clear. Left-sided weakness; increased from baseline. Improved from yesterday.. ABSENT: motor sensory deficit Psychiatric exam: PRESENT: appropriate affect, normal mood. ABSENT: homicidal ideation, suicidal ideation Skin exam: PRESENT: dry, intact, warm. ABSENT: cyanosis, rash Results Laboratory Results: 10/10/18 04:40 10/10/18 04:40 10/10/18 10/10/18 10/10/18 04:40 04:40 04:40 WBC 4.8 RBC 4.61 Hgb 13.7 Hct 40.5 MCV 88 MCH 29.8 MCHC 33.9 RDW 14.4 H Plt Count 108 L Sodium 135.3 L Potassium 4.1 Chloride 99 Carbon Dioxide 27 Anion Gap 9 BUN 14 Creatinine 0.79 Est GFR ( Amer) > 60 Est GFR (Non-Af Amer) > 60 Glucose 111 H Calcium 9.7 Triglycerides 157 H Cholesterol 152.52 LDL Cholesterol Direct 88 VLDL Cholesterol 31.4 H HDL Cholesterol 38 L TSH 3.48 10/09/18 10/09/18 10/09/18 10:48 10:48 11:35 Creatine Kinase Cancelled 138 H CK-MB (CK-2) Cancelled Troponin I Cancelled 10/09/18 11:35 Creatine Kinase CK-MB (CK-2) 1.31 Troponin I < 0.012 Impressions: Head MRI 10/09/18 00:00 IMPRESSION: Negative for acute or sub-acute infarction. EVIDENCE OF ACUTE STROKE: NO. Chest X-Ray 10/09/18 10:24 IMPRESSION: NO ACUTE RADIOGRAPHIC FINDING IN THE CHEST. Head CT 10/09/18 10:24 IMPRESSION: MILD CHRONIC CHANGES OF ATROPHY AND MICROVASCULAR ISCHEMIA. NO ACUTE PROCESS. EVIDENCE OF ACUTE STROKE: NO. Carotid Doppler Study 10/09/18 13:10 IMPRESSION: NO HEMODYNAMICALLY SIGNIFICANT ICA STENOSIS.Left ECA 233 cm/s velocity. Assessment and Plan - Diagnosis (1) Hypertensive emergency Is this a current diagnosis for this admission?: Yes Plan: Patient was admitted with triple of her triple blood pressure; denies prior history of hypertension. 192/124 -235/[address] negative for acute CVA. Follow-up head MRI also negative; does demonstrate chronic microvascular ischemic changes. Patient is admitted to the medical floor and continuous cardiac telemetry. Has acute CVA has been ruled out; do not need to allow for permissive hypertension. She is started on lisinopril and hydrochlorothiazide daily. IV hydralazine as needed for blood pressure control. Cardiac diet (2) TIA (transient ischemic attack) Is this a current diagnosis for this admission?: Yes Plan: Head CT and head MRI are negative for acute CVA; do demonstrate chronic microvascular ischemic changes. Echocardiogram is negative for hemodynamically significant stenosis. A1C and thyroid panel are acceptable. HDL 38, LDL 88, Triglycerides 157, TChol 152 Patient is admitted to [facility] on continuous cardiac telemetry. Hypertension managed as above. She is started on daily aspirin and statin therapy. PT/OT/ST consultations are requested; recommending acute rehabilitation. Will consult Dr. Estrada. Discharge planning is requested. (3) Diabetes Qualifiers: Diabetes mellitus type: type 2 Diabetes mellitus long term care social worker insulin use: without mcc use Is this a current diagnosis for this admission?: Yes Plan: Patient endorses a history of diabetes mellitus; diet controlled A1C 5.8% She is placed on a cardiac/consistent carb diet. Accu-Cheks before meals and at bedtime with sliding scale insulin coverage. Hypoglycemia protocol in place. (4) Expressive aphasia Is this a current diagnosis for this admission?: Yes Plan: Likely secondary to hypertensive emergency. Symptoms are waxing and waning but overall improved as compared to her time of arrival to the emergency department. Management of hypertension and evaluation for TIA/CVA as above. Speech therapy is consulted. (5) Left leg weakness Is this a current diagnosis for this admission?: Yes Plan: Likely secondary to hypertensive emergency. Management of hypertension and evaluation for TIA/CVA as above. Physical Therapy/Occupational Therapy are consulted. - Time Time Spent with patient: 25-34 minutes Medications reviewed and adjusted accordingly: Yes Anticipated discharge: Acute Rehab Within: when bed available
[2018-10-10] MEDS: ROPINIROLE HCL 0.25 MG TABLET PO PRN (18:25)
--- NOTE | 2018-10-10 18:57 | EKG REPORT ---
SEVERITY:- ABNORMAL ECG - SINUS RHYTHM PROBABLE LEFT ATRIAL ABNORMALITY RIGHT BUNDLE BRANCH BLOCK : Confirmed by: Hiren Mancia MD 10-Oct-2018 18:57:01
[2018-10-10] MEDS: ATORVASTATIN CALCIUM 80 MG TABLET PO SCH (21:27)
[2018-10-11] MEDS: HEPARIN SOD (PORCINE) 5,000 UNIT/ML 1 ML VIAL SUBCUT SCH ×3 (05:07→22:00)
[2018-10-11] MEDS: INSULIN LISPRO 100 UNIT/ML 3 ML VIAL SUBCUT SCH ×3 (08:17→17:00)
[2018-10-11] MEDS: HYDROCHLOROTHIAZIDE 12.5 MG TABLET PO SCH (08:20)
[2018-10-11] MEDS: LORATADINE 10 MG TABLET PO SCH (10:32)
[2018-10-11] MEDS: PANTOPRAZOLE SODIUM 40 MG TABLET.DR PO SCH (10:32)
[2018-10-11] MEDS: LISINOPRIL 5 MG TABLET PO SCH (10:33)
[2018-10-11] MEDS: FAMOTIDINE 20 MG TABLET PO SCH ×2 (10:33→22:00)
[2018-10-11] MEDS: ASPIRIN 81 MG TABLET, ENT COATED PO SCH (10:33)
--- NOTE | 2018-10-11 11:42 | PDOC CONSULTATION ---
Consultation-Blank Consultation: Physical Medicine & Rehabilitation Progress Note Consultation requested received and appreciated. 82-year-old female with past medical history including CVA with residual left-sided weakness admitted to [facility] on 10/09/2018 after presenting with worsening left-sided weakness and expressive aphasia. Thus far on stroke workup CT head and MRI are negative for acute CVA, and the patient is undergoing further testing and risk factor modification. She was evaluated by acute care physical therapy and occupational therapy, and she currently requires moderate assistance for bed mobility, maximum assistance for transfers, minimum assistance for upper body dressing, and dependent assistance for lower body dressing. She was evaluated by speech therapy and is currently on a regular solids with thin liquids diet. Physical medicine and rehabilitation consultation was requested to evaluate the patient for admission to acute inpatient rehabilitation. A final recommendation regarding the most appropriate postacute care rehabilitation setting cannot be made at this time. We will continue to follow the patients progress in acute-care therapies and complete a formal evaluation on , 10/12/2018.
[2018-10-11 14:48] LABS: APPEARANCE,URINE CLEAR; BILIRUBIN,URINE NEGATIVE (NEGATIVE); COLOR,URINE YELLOW; GLUCOSE, URINE NEGATIVE (NEGATIVE); KETONES,URINE NEGATIVE (NEGATIVE); LEUKOCYTE ESTERASE,URINE NEGATIVE (NEGATIVE); NITRITE,URINE NEGATIVE (NEGATIVE); PROTEIN,URINE NEGATIVE (NEGATIVE); URINE SPECIFIC GRAVITY 1.009; UROBILINOGEN,URINE NEGATIVE mg/dL (<2.0)
--- NOTE | 2018-10-11 17:54 | PDOC PROGRESS REPORT ---
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 Patient was seen on afternoon rounds with present. She was found sitting up in bed, comfortably, on room air. She reports continued left-sided weakness, significantly worsened today as compared to yesterday. She has minimal function to LUE (flaccid) without forensic ballistics expert strength. Expressive aphasia appears resolved. Slight facial droop today. She denies fever, chills, headache, dizziness, chest pain, palpitations, dyspnea, orthopnea, cough, abdominal pain, nausea vomiting and diarrhea. She has no new questions or concerns. No concerns per nursing. Reason For Visit: TIA, CVA,APHASIA,LT SIDE WEAKNESS Physical Exam Vital Signs: Temp Pulse Resp BP Pulse Ox 97.5 F 95 16 149/52 H 97 10/11/18 11:16 10/11/18 14:00 10/11/18 12:00 10/11/18 12:00 10/11/18 12:00 Intake & Output 10/10/18 10/11/18 10/12/18 06:59 06:59 06:59 Intake Total 480 995 480 Output Total 850 900 400 Balance -370 95 80 Weight 83.8 kg 83.5 kg General appearance: PRESENT: no acute distress, cooperative, well-developed, well-nourished - overweight Head exam: PRESENT: atraumatic, normocephalic Eye exam: PRESENT: conjunctiva pink, EOMI, PERRLA. ABSENT: scleral icterus Ear exam: PRESENT: normal external ear exam Mouth exam: PRESENT: moist, tongue midline Neck exam: ABSENT: carotid bruit, JVD, lymphadenopathy, thyromegaly Respiratory exam: PRESENT: clear to auscultation ambreen, symmetrical, unlabored. ABSENT: rales, rhonchi, wheezes Cardiovascular exam: PRESENT: RRR, +S1, +S2. ABSENT: diastolic murmur, rubs, systolic murmur Pulses: PRESENT: normal dorsalis pedis pul Vascular exam: PRESENT: normal capillary refill GI/Abdominal exam: PRESENT: normal bowel sounds, soft. ABSENT: distended, guarding, mass, organolmegaly, rebound, tenderness Rectal exam: PRESENT: deferred Extremities exam: ABSENT: calf tenderness, clubbing, pedal edema Neurological exam: PRESENT: alert, awake, oriented to person, oriented to place, oriented to time, oriented to situation, other - Slight facial droop today. Expressive aphasia is resolved. 1/5 strength left upper extremity, 5/5 strength right upper extremity. 2/5 left plantar flexion, 0/5 left dorsiflexion. Normal on right. Overall worsened as compared to yesterday and day of admission.. ABSENT: motor sensory deficit Psychiatric exam: PRESENT: appropriate affect, normal mood. ABSENT: homicidal ideation, suicidal ideation Skin exam: PRESENT: dry, intact, warm. ABSENT: cyanosis, rash Results Laboratory Results: 10/10/18 04:40 10/10/18 04:40 10/11/18 14:22 Urine Color YELLOW Urine Appearance CLEAR Urine pH 7.0 Ur Specific [place] 1.009 Urine Protein NEGATIVE Urine Glucose (UA) NEGATIVE Urine Ketones NEGATIVE Urine Blood NEGATIVE Urine Nitrite NEGATIVE Ur Leukocyte Esterase NEGATIVE 10/09/18 10/09/18 10/09/18 10:48 10:48 11:35 Creatine Kinase Cancelled 138 H CK-MB (CK-2) Cancelled Troponin I Cancelled 10/09/18 11:35 Creatine Kinase CK-MB (CK-2) 1.31 Troponin I < 0.012 Impressions: Head MRI 10/09/18 00:00 IMPRESSION: Negative for acute or sub-acute infarction. EVIDENCE OF ACUTE STROKE: NO. Chest X-Ray 10/09/18 10:24 IMPRESSION: NO ACUTE RADIOGRAPHIC FINDING IN THE CHEST. Head CT 10/09/18 10:24 IMPRESSION: MILD CHRONIC CHANGES OF ATROPHY AND MICROVASCULAR ISCHEMIA. NO ACUTE PROCESS. EVIDENCE OF ACUTE STROKE: NO. Carotid Doppler Study 10/09/18 13:10 IMPRESSION: NO HEMODYNAMICALLY SIGNIFICANT ICA STENOSIS.Left ECA 233 cm/s velocity. Assessment and Plan - Diagnosis (1) Acute CVA (cerebrovascular accident) Is this a current diagnosis for this admission?: Yes Plan: Head CT and head MRI are negative for acute CVA; do demonstrate chronic microvascular ischemic changes. Echocardiogram is negative for hemodynamically significant stenosis. A1C and thyroid panel are acceptable. HDL 38, LDL 88, Triglycerides 157, TChol 152 Patient is admitted to [facility] on continuous cardiac telemetry. Hypertension managed as below. She is started on daily aspirin and statin therapy. We will repeat MRI today as the patient has significantly worsened left-sided deficits. No history of PAF; has remained in normal sinus rhythm throughout. Patient may benefit from outpatient telemetry monitoring. Patient reports that despite her previous CVA she was not on statin or aspirin therapy. Therefore she is appropriate to continue on those alone and does not require additional antiplatelet or anticoagulants at this time. PT/OT/ST consultations are requested; recommending acute rehabilitation. Will consult Dr. Estrada. Discharge planning is requested. (2) Hypertensive emergency Is this a current diagnosis for this admission?: Yes Plan: Resolved; patient now with adequately controlled blood pressures; 149/52. Patient was admitted with triple of her triple blood pressure; denies prior history of hypertension. Head CT negative for acute CVA. Follow-up head MRI also negative; does demonstrate chronic microvascular ischemic changes. Patient is admitted to the medical floor and continuous cardiac telemetry. She is started on lisinopril and hydrochlorothiazide daily. IV hydralazine as needed for blood pressure control. Cardiac diet (3) Diabetes Qualifiers: Diabetes mellitus type: type 2 Diabetes mellitus senior living insulin use: without senior living use Is this a current diagnosis for this admission?: Yes Plan: Patient endorses a history of diabetes mellitus; diet controlled A1C 5.8% She is placed on a cardiac/consistent carb diet. Accu-Cheks before meals and at bedtime with sliding scale insulin coverage. Hypoglycemia protocol in place. (4) Expressive aphasia Is this a current diagnosis for this admission?: Yes Plan: Likely secondary to hypertensive emergency. Symptoms are waxing and waning but overall improved as compared to her time of arrival to the emergency department. Management of hypertension and evaluation for TIA/CVA as above. Speech therapy is consulted. (5) Left leg weakness Is this a current diagnosis for this admission?: Yes Plan: Likely secondary to hypertensive emergency. Management of hypertension and evaluation for TIA/CVA as above. Physical Therapy/Occupational Therapy are consulted. (6) TIA (transient ischemic attack) Is this a current diagnosis for this admission?: Yes Plan: Evaluation management as above. - Time Time Spent with patient: 35 or more minutes Medications reviewed and adjusted accordingly: Yes Anticipated discharge: Acute Rehab Within: when bed available
[2018-10-11] MEDS: ATORVASTATIN CALCIUM 80 MG TABLET PO SCH (22:00)
[2018-10-12] MEDS: INSULIN LISPRO 100 UNIT/ML 3 ML VIAL SUBCUT SCH ×5 (02:35→22:08)
[2018-10-12] MEDS: HEPARIN SOD (PORCINE) 5,000 UNIT/ML 1 ML VIAL SUBCUT SCH ×3 (05:11→22:05)
--- NOTE | 2018-10-12 09:54 | RADIOLOGY REPORT (SQ) ---
EXAM DESCRIPTION: MRI HEAD WITHOUT COMPLETED DATE/TIME: 10/12/2018 9:13 am REASON FOR STUDY: Worsened left side weaknes; ?CVA E03.9 HYPOTHYROIDISM, UNSPECIFIED COMPARISON: None. TECHNIQUE: Multiplanar imaging includes non-contrasted T1, T2, FLAIR, and diffusion with ADC map seq uences. Images stored on PACS. LIMITATIONS: None. FINDINGS: ANATOMY: No developmental anomalies. Normal vascular flow voids. Pituitary fossa normal. CSF SPACES: Normal in size and contour. No hemorrhage. CEREBRUM: There is age-appropriate minimal bifrontal and biparietal small vessel ischemic change in t he hemispheric white matter. No acute large territory hemispheric ischemic change, mass effect, or m idline shift. POSTERIOR FOSSA: Diffusion-weighted images are positive for a pontine infarct just to the right of mi dline on axial image 11. This is acute, nonhemorrhagic, without significant mass effect. Report sanaz led to Cindy Ellsworth, at the time of dictation. Old right and left cerebellar hemisphere infarcts. Internal auditory canals, cerebello-pontine angle s, mastoids normal. DIFFUSION IMAGING: Positive for acute nonhemorrhagic right pontine infarct ORBITS: No masses. Globes post cataract surgery bilaterally. PARANASAL SINUSES: No fluid levels. Mucosa normal. OTHER: No other significant finding. IMPRESSION: Acute nonhemorrhagic right pontine infarct. EVIDENCE OF ACUTE STROKE: Yes TECHNICAL DOCUMENTATION: JOB ID: [id number]- All Rights Reserved Reading location - IP/workstation name: [email or web address]
[2018-10-12] MEDS: LORATADINE 10 MG TABLET PO SCH (11:29)
[2018-10-12] MEDS: LISINOPRIL 5 MG TABLET PO SCH (11:29)
[2018-10-12] MEDS: ASPIRIN 81 MG TABLET, ENT COATED PO SCH (11:30)
[2018-10-12] MEDS: FAMOTIDINE 20 MG TABLET PO SCH ×2 (11:31→22:10)
[2018-10-12] MEDS: HYDROCHLOROTHIAZIDE 12.5 MG TABLET PO SCH (11:31)
[2018-10-12] MEDS: PANTOPRAZOLE SODIUM 40 MG TABLET.DR PO SCH (11:31)
--- NOTE | 2018-10-12 12:35 | Physical Med & Rehab Consult ---
Consultation Consult Date: 10/12/18 Provider Consulted: ANDREW MURILLO Consult reason:: Evaluation for admission to acute inpatient rehabilitation History of Present Illness Admission Date/PCP: 10/09/18 12:27 ANDRE AMARO MD Patient complains of: Left-sided weakness History of Present Illness: CHELO THOMPSON is an 82-year-old right-handed female with past medical history of hypertension, diabetes mellitus type 2, history of ischemic CVA with residual left-sided weakness, GERD, eczema, cholecystectomy, bilateral foot surgery, right knee surgery, left arm surgery, and right shoulder surgery admitted to [facility] on 10/09/2018 after presenting with worsening left-sided weakness and expressive aphasia. Initial CT head and MRI of the brain were negative for acute intracranial abnormalities, and carotid duplex was negative for any hemodynamically significant stenosis. Laboratory studies demonstrated total cholesterol of 153, LDL of 88, normal TSH, and hemoglobin A1c of 5.8%. He was also noted to have thrombocytopenia with platelet count of 108,000. As the patient's stroke work-up was ongoing, her expressive aphasia was initially noted to have proved and nearly resolved but her left upper extremity weakness worsened. Repeat MRI of the head on 10/12/2018 demonstrated an acute nonhemorrhagic right pontine infarct. The patient was started on aspirin 81 mg daily and atorvastatin 40 mg nightly for secondary stroke prophylaxis, and her blood pressure is being controlled with multiple antihypertensive medications. Her blood sugar is being controlled with sliding scale insulin. Physical medicine and rehabilitation consultation was requested to evaluate the patient for admission to acute inpatient rehabilitation. Today, the patient was seen and examined with her and nurse at bedside. She complains of persistent left-sided weakness as well as word finding difficulties and cough with swallowing thin liquids, especially water. She denies any bowel or bladder issues, and her last bowel movement was yesterday. However, she is noted to be on Myrbetriq prior to admission. Past Medical History Cardiac Medical History: Reports: Hypertension Denies: Congestive Heart Failure, Coronary Artery Disease, Myocardial Infarction, Hyperlipidema Pulmonary Medical History: Reports: None EENT Medical History: Reports: None Neurological Medical History: Reports: Ischemic CVA Endocrine Medical History: Reports: Diabetes Mellitus Type 2 Renal/ Medical History: Reports: None Malignancy Medical History: Reports: None GI Medical History: Reports: Gastroesophageal Reflux Disease Musculoskeltal Medical History: Reports: None Skin Medical History: Reports: Eczema Psychiatric Medical History: Denies: Depression, Tobacco Dependency Traumatic Medical History: Reports: None Hematology: Reports: None Infectious Medical History: Reports: None Past Surgical History Past Surgical History: Reports: Cholecystectomy, Orthopedic Surgery - bilater feet, right knee, left arm, right shoulder Social History Lives with: Family Smoking Status: Former Smoker Number of Years Smokin Frequency of Alcohol Use: None Hx Recreational Drug Use: No Drugs: None Hx Prescription Drug Abuse: No Past Social History Note: Chelo Thompson lives with her in a 1 level home with 1 steps to enter and 0 steps to the bedroom and bathroom. She does not smoke, drink alcohol, or use drugs. Prior Functional Status: Active and independent with mobility and all ADLs. Ambulates with a RANDY cane in the community. Current Functional Status: Per therapy notes, the patient currently requires maximum assistance for bed mobility and maximum assistance for transfers. The patient continues to work with speech therapy on dysarthria strategies. Is currently on a regular solids with thin liquids diet. - Advance Directive Resuscitation Status: Full Code Family History Family History: Reviewed & Not Pertinent Parental Family History Reviewed: Yes Children Family History Reviewed: Yes Sibling(s) Family History Reviewed.: NA Medication/Allergy Home Medications: Esomeprazole Magnesium 40 mg PO DAILY 10/09/18 Fexofenadine HCl [Aisha Allergy] 180 mg PO DAILY 10/09/18 Mirabegron [Myrbetriq] 25 mg PO DAILY 10/09/18 Acetaminophen [Tylenol 325 mg Tablet] 650 mg PO Q4HP PRN tablet 10/10/18 Aspirin [Ecotrin 81 mg EC Tablet] 81 mg PO DAILY #90 tabec 10/10/18 Atorvastatin Calcium [Lipitor 20 mg Tablet] 20 mg PO QHS #30 tablet 10/10/18 Docusate Sodium [Colace 100 mg Capsule] 100 mg PO BIDP PRN capsule 10/10/18 Hydrochlorothiazide [Hydrodiuril 12.5 mg Tablet] 12.5 mg PO QAM #30 capsule 10/10/18 Lisinopril [Prinivil 5 mg Tablet] 5 mg PO DAILY #30 tablet 10/10/18 Ropinirole HCl [Requip 0.25 mg Tablet] 0.25 mg PO TIDP PRN #30 tablet 10/10/18 Allergies/Adverse Reactions: No Known Allergies Allergy (Verified 04/17/17 16:11) Review of Systems Review of Systems: Constitutional: No fevers, chills, sweats, weight loss Eye: She did have blurry vision yesterday, but this appears to have resolved. ENMT: No ear pain, nasal congestion, sore throat Respiratory: No shortness of breath, cough, sputum production Cardiovascular: No chest pain, palpitations, syncope Gastrointestinal: No nausea, vomiting, diarrhea, abdominal pain Genitourinary: No hematuria, dysuria, flank or suprapubic pain Shawn/Lymph: Negative for bruising tendency, swollen lymph glands Endocrine: Negative for excessive thirst, excessive hunger, extreme fatigue Musculoskeletal: No back pain, neck pain, joint pain, muscle pain. Today for decreased range of motion of bilateral toes due to previous surgery. Integumentary: No rash, pruritus, abrasions Neurologic: Positive for headache and focal weakness on the left. No sensory d eficits. Positive for difficulty swallowing thin liquids and word finding difficulties. Psychiatric: No anxiety, depression Physical Exam Vital Signs: Temp Pulse Resp BP Pulse Ox 98.1 F 72 20 140/62 H 98 10/12/18 07:52 10/12/18 07:52 10/12/18 07:52 10/12/18 08:00 10/12/18 07:52 Intake & Output 10/11/18 10/12/18 10/13/18 06:59 06:59 06:59 Intake Total 995 1460 Output Total 900 1500 Balance 95 -40 Weight 83.5 kg 81.6 kg Exam: General: Awake and Alert. No acute distress. Resting comfortably in bed with her and nurse at bedside. Head: Normocephalic. Atraumatic. Eyes: Pupils equal, round, and minimally reactive to light. EOMI. Sclera white. Ears: No drainage noted. Nose: Nares normal & without exudate. Oropharynx: Moist mucous membranes. Neck: Supple movements. Cardiovascular: Regular rate & rhythm. No murmurs, rubs, or gallops appreciated. Pulmonary: Lungs clear to auscultation bilaterally. No increased work of breathing. Gastrointestinal: Abdomen soft, obese, non-tender, non-distended. Normoactive bowel sounds. Skin: Texture and turgor normal. Warm and dry. Psychiatric: Judgement and insight appear to be good. Patient is oriented to da te, location, and situation. Affect appropriate. Extremities: Arthritic changes of the hands and feet are noted. Neurological: CN III-XII grossly intact, except slight left lower facial droop. Sensation to light touch is grossly intact. Tone is increased in the left upper and lower extremities. Positive Jackson's and Babinski's on the left. Speech is fluent with good content but with mild dysarthria. She is noted to cough with each sip of thin water. Muscle Strength: Full 5/5 strength in all major muscle groups of the right-sided extremities in the available range of motion. He is able to demonstrate 1/5 strength of shoulder abductors and hip flexors/knee flexors on the left. She does have reflexive hip and knee flexion with withdrawal when testing for Babinski reflex. Results Laboratory Results: 10/10/18 04:40 10/10/18 04:40 10/11/18 14:22 Urine Color YELLOW Urine Appearance CLEAR Urine pH 7.0 Ur Specific [place] 1.009 Urine Protein NEGATIVE Urine Glucose (UA) NEGATIVE Urine Ketones NEGATIVE Urine Blood NEGATIVE Urine Nitrite NEGATIVE Ur Leukocyte Esterase NEGATIVE 10/09/18 10/09/18 10/09/18 10:48 10:48 11:35 Creatine Kinase Cancelled 138 H CK-MB (CK-2) Cancelled Troponin I Cancelled 10/09/18 11:35 Creatine Kinase CK-MB (CK-2) 1.31 Troponin I < 0.012 Impressions: Chest X-Ray 10/09/18 10:24 IMPRESSION: NO ACUTE RADIOGRAPHIC FINDING IN THE CHEST. Head CT 10/09/18 10:24 IMPRESSION: MILD CHRONIC CHANGES OF ATROPHY AND MICROVASCULAR ISCHEMIA. NO ACUTE PROCESS. EVIDENCE OF ACUTE STROKE: NO. Carotid Doppler Study 10/09/18 13:10 IMPRESSION: NO HEMODYNAMICALLY SIGNIFICANT ICA STENOSIS.Left ECA 233 cm/s velocity. Head MRI 10/12/18 00:00 IMPRESSION: Acute nonhemorrhagic right pontine infarct. EVIDENCE OF ACUTE STROKE: Yes Assessment and Plan - Plan Summary Plan Summary: 82-year-old right-handed female with right pontine CVA resulting in left hemiparesis. 1. Gait and ADL Dysfunction secondary to right pontine CVA resulting in left hemiparesis. - Continue PT and OT to maximize mobility, safety, endurance, and self-care. 2. Right pontine CVA resulting in left hemiparesis - Needs continued PT & OT & BOLT SORTER to maximize functional mobility, safety and self-care as well as communication needs & swallow function. Risk Factor Modification: - Hypertension: Dietary and activity modifications, avoid hypotension and hypertension - Glycemic Control: HgBA1c = 5.8%, continue dietary and activity modifications, SSI, avoid hyperglycemia and hypoglycemia - Lipids: LDL is 88, continue dietary and activity modifications, continue statin - Smoking: The patient does not smoke - Alcohol: Patient does not drink alcohol - Antiplatelet: Continue aspirin 81 mg daily - Cardioembolic Event: Recommend obtaining echocardiogram to complete the patient's stroke work-up and rule out a cardioembolic source. However, the stuttering nature of the patient's clinical presentation indicates that this was most likely a thrombotic CVA. - Vascular: No hemodynamically significant stenosis on carotid duplex. Dysphagia: - Bedside swallow evaluation completed. -The patient is currently on a regular solids with thin liquids diet, but she is coughing with each sip of water. Recommend reevaluation by speech therapy. - Aspiration precautions. VTE Prophylaxis: - Recommend SCDs and rechecking CBC to ensure that her platelet count is improving. If so, may continue heparin. Risk of Shoulder Subluxation: - Educate patient and family on positioning. - Lap tray, if needed. - Ensure that the patient has a pillow under her left arm for support when in bed or in a chair to prevent shoulder subluxation. Risk of Spasticity: - Continue ROM, positioning. - She has increased tone in the left upper and lower extremities. I have ordered baclofen 10 mg PO nightly starting 10/12/2018; recommend increasing to baclofen 10 mg 3 times daily over the next 2 to 3 days if the patient is able to tolerate medication. Sedation would be most likely side effect. Risk of Contractures: - Continue ROM, positioning. - I have ordered a PRAFO to be worn on the left lower extremity 4 hours on/4 hours off while in bed to prevent plantarflexion contracture. Risk of Constipation: - Continue dietary modifications and encourage fluid intake. - Bowel protocol. Risk of Neurogenic Bladder/UTI: - Monitor for retention, incontinence, UTI. Risk of Skin Breakdown: - Frequent turning/position changes. - Optimize nutritional status. 3. Hypertension - Continue multiple antihypertensive medications per hospitalist medicine 4. Diabetes mellitus type 2 - Hemoglobin A1c is 5.8% - Continue carbohydrate controlled diet, Accu-Cheks AC and at bedtime, and sliding scale insulin 5. Disposition - Based on the patient's diagnosis, medical co-morbidities, and current functional status, she is a good candidate for acute inpatient rehabilitation as she would benefit from 3 hours per day of intensive therapies in at least 2 disciplines under the close medical supervision of a physician. The patient is expected to make significant gains in a relatively short period of time to the point that she can safely be discharged home with supervision and assistance from family. Insurance preauthorization is required and will be requested. Barring any unforeseen events or complications, there is a plan to admit the patient to acute inpatient rehabilitation at [facility] in [place] in the beginning to middle of next week. In the meantime, please consider and carry out the recommendations made above in bold. This case was discussed with the patient's acute care therapists, nurse on the floor, systems requirements planner, and college scouting coordinator at [facility]. Thank you for allowing us to participate in the care of this patient. Please call with any questions. A total of 80 minutes was spent on [id number] communication with the patient and coordination of care.
--- NOTE | 2018-10-12 18:27 | PDOC PROGRESS REPORT ---
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 Patient was seen on afternoon rounds. She was found sitting up in bed, c omfortably, on room air. She reports continued left-sided weakness. She has minimal function to LUE (flaccid) without online publisher strength. Expressive aphasia appears resolved. Slight facial droop today. Noted to cough after each sip of water today. She denies fever, chills, headache, dizziness, chest pain, palpitations, dyspnea, orthopnea, cough, abdominal pain, nausea vomiting and diarrhea. She has no new questions or concerns. No concerns per nursing. Reason For Visit: TIA, CVA,APHASIA,LT SIDE WEAKNESS Physical Exam Vital Signs: Temp Pulse Resp BP Pulse Ox 97.8 F 83 16 152/70 H 96 10/12/18 12:00 10/12/18 12:00 10/12/18 12:00 10/12/18 12:00 10/12/18 12:00 Intake & Output 10/11/18 10/12/18 10/13/18 06:59 06:59 06:59 Intake Total 995 1460 Output Total 900 1500 Balance 95 -40 Weight 83.5 kg 81.6 kg General appearance: PRESENT: no acute distress, cooperative, well-developed, well-nourished Head exam: PRESENT: atraumatic, normocephalic Eye exam: PRESENT: conjunctiva pink, EOMI, PERRLA. ABSENT: scleral icterus Ear exam: PRESENT: normal external ear exam Mouth exam: PRESENT: moist, tongue midline Neck exam: ABSENT: carotid bruit, JVD, lymphadenopathy, thyromegaly Respiratory exam: PRESENT: clear to auscultation ambreen, symmetrical, unlabored. ABSENT: rales, rhonchi, wheezes Cardiovascular exam: PRESENT: RRR, +S1, +S2. ABSENT: diastolic murmur, rubs, systolic murmur Pulses: PRESENT: normal dorsalis pedis pul Vascular exam: PRESENT: normal capillary refill GI/Abdominal exam: PRESENT: normal bowel sounds, soft. ABSENT: distended, guarding, mass, organolmegaly, rebound, tenderness Rectal exam: PRESENT: deferred Extremities exam: ABSENT: calf tenderness, clubbing, pedal edema Musculoskeletal exam: ABSENT: ambulatory Neurological exam: PRESENT: alert, awake, oriented to person, oriented to place, oriented to time, oriented to situation, CN II-XII grossly intact, other - Slight facial droop today. Expressive aphasia is resolved. 1/5 strength left upper extremity, 5/5 strength right upper extremity. 2/5 left plantar flexion, 0/5 left dorsiflexion. Normal on right.. ABSENT: motor sensory deficit Psychiatric exam: PRESENT: appropriate affect, normal mood. ABSENT: homicidal ideation, suicidal ideation Skin exam: PRESENT: dry, intact, warm. ABSENT: cyanosis, rash Results Laboratory Results: 10/10/18 04:40 10/10/18 04:40 10/09/18 10/09/18 10/09/18 10:48 10:48 11:35 Creatine Kinase Cancelled 138 H CK-MB (CK-2) Cancelled Troponin I Cancelled 10/09/18 11:35 Creatine Kinase CK-MB (CK-2) 1.31 Troponin I < 0.012 Impressions: Chest X-Ray 10/09/18 10:24 IMPRESSION: NO ACUTE RADIOGRAPHIC FINDING IN THE CHEST. Head CT 10/09/18 10:24 IMPRESSION: MILD CHRONIC CHANGES OF ATROPHY AND MICROVASCULAR ISCHEMIA. NO ACUTE PROCESS. EVIDENCE OF ACUTE STROKE: NO. Carotid Doppler Study 10/09/18 13:10 IMPRESSION: NO HEMODYNAMICALLY SIGNIFICANT ICA STENOSIS.Left ECA 233 cm/s velocity. Head MRI 10/12/18 00:00 IMPRESSION: Acute nonhemorrhagic right pontine infarct. EVIDENCE OF ACUTE STROKE: Yes Assessment and Plan - Diagnosis (1) Acute CVA (cerebrovascular accident) Is this a current diagnosis for this admission?: Yes Plan: Head CT and head MRI are negative for acute CVA; do demonstrate chronic micr ovascular ischemic changes. Echocardiogram is negative for hemodynamically significant stenosis. A1C and thyroid panel are acceptable. HDL 38, LDL 88, Triglycerides 157, TChol 152 Repeat MRI reveals acute nonhemorrhagic right pontine infarct suspect acute CVA occurred 10/10-10/11. Will obtain echocardiogram. Patient is admitted to [facility] on continuous cardiac telemetry. Hypertension managed as below. She is started on daily aspirin and statin therapy. Patient may benefit from outpatient cardiac event monitoring. Patient reports that despite her previous CVA she was not on statin or aspirin therapy. Therefore she is appropriate to continue on those alone and does not require additional antiplatelet or anticoagulants at this time. PT/OT/ST consultations are requested; recommending acute rehabilitation. Discharge planning is requested. Discussed with Dr. Peña: due to acuity of pontine CVA; will need to observe for sequela for another 24 to 48 hours. (2) Hypertensive emergency Is this a current diagnosis for this admission?: Yes Plan: Resolved; patient now with adequately controlled blood pressures; Denies prior history of hypertension. Patient is admitted to the medical floor and continuous cardiac telemetry. She is started on lisinopril and hydrochlorothiazide daily. IV hydralazine as needed for blood pressure control. Cardiac diet (3) Diabetes Qualifiers: Diabetes mellitus type: type 2 Diabetes mellitus terminal manager insulin use: without terminal manager use Is this a current diagnosis for this admission?: Yes Plan: Patient endorses a history of diabetes mellitus; diet controlled A1C 5.8% She is placed on a cardiac/consistent carb diet. Accu-Cheks before meals and at bedtime with sliding scale insulin coverage. Hypoglycemia protocol in place. (4) Expressive aphasia Is this a current diagnosis for this admission?: Yes Plan: Management of hypertension and CVA as above. Speech therapy is consulted. (5) Left leg weakness Is this a current diagnosis for this admission?: Yes Plan: Secondary to acute CVA. Physical Therapy/Occupational Therapy are consulted. (6) TIA (transient ischemic attack) Is this a current diagnosis for this admission?: Yes Plan: Evaluation management as above. - Time Time Spent with patient: 35 or more minutes Medications reviewed and adjusted accordingly: Yes Anticipated discharge: Home - Inpatient Certification Based on my medical assessment, after consideration of the patient's comorbidities, presenting symptoms, or acuity I expect that the services needed warrant INPATIENT care.: Yes I certify that my determination is in accordance with my understanding of Medicare's requirements for reasonable and necessary INPATIENT services [42 CFR 412.3e].: Yes Medical Necessity: Need Close Monitoring Due to Risk of Patient Decompensation, Need For Continuous Telemetry Monitoring, Risk of Diagnosis Which Will Require Inpatient Eval/Care/Monitoring
[2018-10-12] MEDS: ATORVASTATIN CALCIUM 80 MG TABLET PO SCH (22:10)
[2018-10-12] MEDS: BACLOFEN 10 MG TABLET PO SCH (22:10)
[2018-10-13] MEDS: HEPARIN SOD (PORCINE) 5,000 UNIT/ML 1 ML VIAL SUBCUT SCH ×3 (05:14→21:11)
[2018-10-13] MEDS: INSULIN LISPRO 100 UNIT/ML 3 ML VIAL SUBCUT SCH ×4 (08:33→22:30)
[2018-10-13] MEDS: HYDROCHLOROTHIAZIDE 12.5 MG TABLET PO SCH (08:38)
[2018-10-13] MEDS: ASPIRIN 81 MG TABLET, ENT COATED PO SCH (09:38)
[2018-10-13] MEDS: LISINOPRIL 5 MG TABLET PO SCH (10:54)
[2018-10-13] MEDS: LORATADINE 10 MG TABLET PO SCH (10:54)
[2018-10-13] MEDS: FAMOTIDINE 20 MG TABLET PO SCH ×2 (10:54→21:05)
[2018-10-13] MEDS: PANTOPRAZOLE SODIUM 40 MG TABLET.DR PO SCH (10:54)
--- NOTE | 2018-10-13 16:37 | ADVANCED CARE ---
- Diagnosis (1) Acute CVA (cerebrovascular accident) Diagnosis Current: Yes (2) Hypertensive emergency Diagnosis Current: Yes (3) Diabetes Diagnosis Current: Yes (4) Expressive aphasia Diagnosis Current: Yes (5) Left leg weakness Diagnosis Current: Yes (6) TIA (transient ischemic attack) Diagnosis Current: Yes Attendance: The patient and her , Abner Thompson. Resuscitation Status: Full Code Discussion: Discussed with the patient and her her chronic medical conditions and current diagnosis of acute right pontine CVA. Advised the patient of the importance of periodically reviewing goal planning and suggested that her pending transition to acute rehabilitation necessitated that we discuss with she and her would wish healthcare providers to do in the event of an emergency. The patient and her had a very detailed and thorough conversation with regard to the likely prognosis and survivability of additional similar strokes. They also discussed her overall health and likelihood of survivability in the event of sudden cardiac event, sepsis, or other seriously acute medical condition requiring intubation/mechanical ventilation. Ultimately, patient and decided that they do wish for her to remain a FULL CODE. Patient and did discuss specific medical conditions with which the patient would not wish to be intubated. Specifically, if the primary cause of her respiratory or cardiac failure were to be an acute CVA, the patient desires a DNR/DNI with comfort measures. However, if the causes to be a defined acute event (for example surgical necessity, sepsis secondary to UTI) the patient would wish for intubation and aggressive measures for a short defined period of time to be determined by the healthcare team and her , Abner Thompson. As the patient has very specific desires, she and her are encouraged to review the MOST form and to consider obtaining a living will and healthcare power of tax attorney documentation. Care Planning Goals: FULL CODE w/ exception of recurrent CVA as cause (in which case patient desires DNR/DNI) Document(s) Completed: Blank MOST form left w/ patient and for review. Time Spent: 30 min
--- NOTE | 2018-10-13 16:57 | PDOC PROGRESS REPORT ---
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 Patient was seen on morning rounds with family present. She was found sitting up in bed, comfortably, on room air. She reports continued left-sided weakness. She has minimal function to LUE (flaccid) without plastic surgery nurse strength. Expressive aphasia appears resolved. Slight facial droop today. She denies fever, chills, headache, dizziness, chest pain, palpitations, dyspnea , orthopnea, cough, abdominal pain, nausea vomiting and diarrhea. She has no new questions or concerns. No concerns per nursing. Reason For Visit: ACUTE PONTINE CVA Physical Exam Vital Signs: Temp Pulse Resp BP Pulse Ox 97.4 F 76 16 142/51 H 97 10/13/18 11:52 10/13/18 14:00 10/13/18 12:00 10/13/18 12:00 10/13/18 12:00 Intake & Output 10/12/18 10/13/18 10/14/18 06:59 06:59 06:59 Intake Total 1460 877 Output Total 1500 900 Balance -40 -23 Weight 81.6 kg 84.8 kg General appearance: PRESENT: no acute distress, obese, well-developed, well- nourished Head exam: PRESENT: atraumatic, normocephalic Eye exam: PRESENT: conjunctiva pink, EOMI, PERRLA. ABSENT: scleral icterus Ear exam: PRESENT: normal external ear exam Mouth exam: PRESENT: moist, tongue midline Neck exam: ABSENT: carotid bruit, JVD, lymphadenopathy, thyromegaly Respiratory exam: PRESENT: clear to auscultation ambreen, symmetrical, unlabored. ABSENT: rales, rhonchi, wheezes Cardiovascular exam: PRESENT: RRR, +S1, +S2. ABSENT: diastolic murmur, rubs, systolic murmur Pulses: PRESENT: normal dorsalis pedis pul Vascular exam: PRESENT: normal capillary refill GI/Abdominal exam: PRESENT: normal bowel sounds, soft. ABSENT: distended, guarding, mass, organolmegaly, rebound, tenderness Rectal exam: PRESENT: deferred Extremities exam: PRESENT: full ROM. ABSENT: calf tenderness, clubbing, pedal edema Neurological exam: PRESENT: alert, awake, oriented to person, oriented to place, oriented to time, oriented to situation, CN II-XII grossly intact, other - Slight facial droop today. Expressive aphasia is resolved. 1/5 strength left upper extremity, 5/5 strength right upper extremity. 2/5 left plantar flexion, 0/5 left dorsiflexion. Normal on right. ABSENT: motor sensory deficit Psychiatric exam: PRESENT: appropriate affect, normal mood. ABSENT: homicidal ideation, suicidal ideation Skin exam: PRESENT: dry, intact, warm. ABSENT: cyanosis, rash Results Laboratory Results: 10/10/18 04:40 10/10/18 04:40 10/09/18 10/09/18 10/09/18 10:48 10:48 11:35 Creatine Kinase Cancelled 138 H CK-MB (CK-2) Cancelled Troponin I Cancelled 10/09/18 11:35 Creatine Kinase CK-MB (CK-2) 1.31 Troponin I < 0.012 Impressions: Chest X-Ray 10/09/18 10:24 IMPRESSION: NO ACUTE RADIOGRAPHIC FINDING IN THE CHEST. Head CT 10/09/18 10:24 IMPRESSION: MILD CHRONIC CHANGES OF ATROPHY AND MICROVASCULAR ISCHEMIA. NO ACUTE PROCESS. EVIDENCE OF ACUTE STROKE: NO. Carotid Doppler Study 10/09/18 13:10 IMPRESSION: NO HEMODYNAMICALLY SIGNIFICANT ICA STENOSIS.Left ECA 233 cm/s velocity. Head MRI 10/12/18 00:00 IMPRESSION: Acute nonhemorrhagic right pontine infarct. EVIDENCE OF ACUTE STROKE: Yes Assessment and Plan - Diagnosis (1) Acute CVA (cerebrovascular accident) Is this a current diagnosis for this admission?: Yes Plan: Head CT and head MRI are negative for acute CVA; do demonstrate chronic mi crovascular ischemic changes. Echocardiogram is negative for hemodynamically significant stenosis. A1C and thyroid panel are acceptable. HDL 38, LDL 88, Triglycerides 157, TChol 152 Repeat MRI reveals acute nonhemorrhagic right pontine infarct suspect acute CVA occurred 10/10-10/11. Echocardiogram is pending. Patient is admitted to [facility] on continuous cardiac telemetry. Hypertension managed as below. She is started on daily aspirin and statin therapy. Patient may benefit from outpatient cardiac event monitoring. Patient reports that despite her previous CVA she was not on statin or aspirin therapy. Therefore she is appropriate to continue on those alone and does not require additional antiplatelet or anticoagulants at this time. PT/OT/ST consultations are requested; recommending acute rehabilitation. Discharge planning is requested. Discussed with Dr. Peña: due to acuity of pontine CVA; will need to observe for sequela for another 24 hours. (2) Hypertensive emergency Is this a current diagnosis for this admission?: Yes Plan: Resolved; patient now with adequately controlled blood pressures; Denies prior history of hypertension. Patient is admitted to the medical floor and continuous cardiac telemetry. She is started on lisinopril and hydrochlorothiazide daily. IV hydralazine as needed for blood pressure control. Cardiac diet (3) Diabetes Qualifiers: Diabetes mellitus type: type 2 Diabetes mellitus fpc insulin use: without terminal make up operator use Is this a current diagnosis for this admission?: Yes Plan: Patient endorses a history of diabetes mellitus; diet controlled A1C 5.8% She is placed on a cardiac/consistent carb diet. Accu-Cheks before meals and at bedtime with sliding scale insulin coverage. Hypoglycemia protocol in place. (4) Expressive aphasia Is this a current diagnosis for this admission?: Yes Plan: Management of hypertension and CVA as above. Speech therapy is consulted. (5) Left leg weakness Is this a current diagnosis for this admission?: Yes Plan: Secondary to acute CVA. Physical Therapy/Occupational Therapy are consulted. (6) TIA (transient ischemic attack) Is this a current diagnosis for this admission?: Yes Plan: Presented with TIA symptoms; slightly worsening of her left-sided weakness With expressive aphasia. Symptoms appear to be resolving. Initial head CT and MRI were negative for acute CVA. 48 hours later, her symptoms had dramatically worsened; repeat MRI showed an acute right pontine CVA. Evaluation management as above. - Time Time Spent with patient: 25-34 minutes Medications reviewed and adjusted accordingly: Yes Anticipated discharge: Home, Acute Rehab Within: Other - Bed available 10/16/2018
[2018-10-13] MEDS: BACLOFEN 10 MG TABLET PO SCH (21:05)
[2018-10-13] MEDS: ATORVASTATIN CALCIUM 80 MG TABLET PO SCH (21:05)
[2018-10-14] MEDS: HEPARIN SOD (PORCINE) 5,000 UNIT/ML 1 ML VIAL SUBCUT SCH ×3 (05:28→21:29)
[2018-10-14] MEDS: PANTOPRAZOLE SODIUM 40 MG TABLET.DR PO SCH (09:16)
[2018-10-14] MEDS: LISINOPRIL 5 MG TABLET PO SCH (09:16)
[2018-10-14] MEDS: LORATADINE 10 MG TABLET PO SCH (09:16)
[2018-10-14] MEDS: ASPIRIN 81 MG TABLET, ENT COATED PO SCH (09:16)
[2018-10-14] MEDS: HYDROCHLOROTHIAZIDE 12.5 MG TABLET PO SCH (09:16)
[2018-10-14] MEDS: FAMOTIDINE 20 MG TABLET PO SCH ×2 (09:17→21:29)
--- NOTE | 2018-10-14 18:56 | PDOC PROGRESS REPORT ---
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 Patient was seen on afternoon rounds. She was found sitting up in bed, c omfortably, on room air. She reports continued left-sided weakness. She has minimal function to LUE (flaccid) without asian studies program chair strength. Expressive aphasia appears resolved. Slight facial droop today. Pleased that she was able to stand with physical therapy today. She denies fever, chills, headache, dizziness, chest pain, palpitations, dyspnea, orthopnea, cough, abdominal pain, nausea vomiting and diarrhea. She has no new questions or concerns. No concerns per nursing. Reason For Visit: ACUTE PONTINE CVA Physical Exam Vital Signs: Temp Pulse Resp BP Pulse Ox 97.6 F 72 17 138/43 H 97 10/14/18 15:14 10/14/18 15:14 10/14/18 15:14 10/14/18 15:20 10/14/18 15:14 Intake & Output 10/13/18 10/14/18 10/15/18 06:59 06:59 06:59 Intake Total 877 1020 800 Output Total 900 300 Balance -23 1020 500 Weight 84.8 kg 83.9 kg General appearance: PRESENT: no acute distress, obese, well-developed, well- nourished Head exam: PRESENT: atraumatic, normocephalic Eye exam: PRESENT: conjunctiva pink, EOMI, PERRLA. ABSENT: scleral icterus Ear exam: PRESENT: normal external ear exam Mouth exam: PRESENT: moist, tongue midline Neck exam: ABSENT: carotid bruit, JVD, lymphadenopathy, thyromegaly Respiratory exam: PRESENT: clear to auscultation ambreen, symmetrical, unlabored. ABSENT: rales, rhonchi, wheezes Cardiovascular exam: PRESENT: RRR, +S1, +S2. ABSENT: diastolic murmur, rubs, systolic murmur Pulses: PRESENT: normal dorsalis pedis pul Vascular exam: PRESENT: normal capillary refill GI/Abdominal exam: PRESENT: normal bowel sounds, soft. ABSENT: distended, guarding, mass, organolmegaly, rebound, tenderness Rectal exam: PRESENT: deferred Extremities exam: PRESENT: full ROM. ABSENT: calf tenderness, clubbing, pedal edema Neurological exam: PRESENT: alert, awake, oriented to person, oriented to place, oriented to time, oriented to situation, CN II-XII grossly intact, other - Slight facial droop today. Expressive aphasia is resolved. 0/5 strength left upper extremity, 5/5 strength right upper extremity. 1/5 left plantar flexion, 0/5 left dorsiflexion. Normal on right. ABSENT: motor sensory deficit Psychiatric exam: PRESENT: appropriate affect, normal mood. ABSENT: homicidal ideation, suicidal ideation Skin exam: PRESENT: dry, intact, warm. ABSENT: cyanosis, rash Results Laboratory Results: 10/10/18 04:40 10/10/18 04:40 10/09/18 10/09/18 10/09/18 10:48 10:48 11:35 Creatine Kinase Cancelled 138 H CK-MB (CK-2) Cancelled Troponin I Cancelled 10/09/18 11:35 Creatine Kinase CK-MB (CK-2) 1.31 Troponin I < 0.012 Impressions: Chest X-Ray 10/09/18 10:24 IMPRESSION: NO ACUTE RADIOGRAPHIC FINDING IN THE CHEST. Head CT 10/09/18 10:24 IMPRESSION: MILD CHRONIC CHANGES OF ATROPHY AND MICROVASCULAR ISCHEMIA. NO ACUTE PROCESS. EVIDENCE OF ACUTE STROKE: NO. Carotid Doppler Study 10/09/18 13:10 IMPRESSION: NO HEMODYNAMICALLY SIGNIFICANT ICA STENOSIS.Left ECA 233 cm/s velocity. Head MRI 10/12/18 00:00 IMPRESSION: Acute nonhemorrhagic right pontine infarct. EVIDENCE OF ACUTE STROKE: Yes Assessment and Plan - Diagnosis (1) Acute CVA (cerebrovascular accident) Is this a current diagnosis for this admission?: Yes Plan: Head CT and head MRI are negative for acute CVA; do demonstrate chronic microvascular ischemic changes. Echocardiogram is negative for hemodynamically significant stenosis. A1C and thyroid panel are acceptable. HDL 38, LDL 88, Triglycerides 157, TChol 152 Repeat MRI reveals acute nonhemorrhagic right pontine infarct suspect acute CVA occurred 10/10-10/11. Echocardiogram is pending. Patient is admitted to [facility] on continuous cardiac telemetry. Hypertension managed as below. She is started on daily aspirin and statin therapy. Patient may benefit from outpatient cardiac event monitoring. Patient reports that despite her previous CVA she was not on statin or aspirin therapy. Therefore she is appropriate to continue on those alone and does not require additional antiplatelet or anticoagulants at this time. PT/OT/ST consultations are requested; recommending acute rehabilitation. Discharge planning is requested. (2) Hypertensive emergency Is this a current diagnosis for this admission?: Yes Plan: Resolved; patient now with adequately controlled blood pressures; Denies prior history of hypertension. Patient is admitted to the medical floor and continuous cardiac telemetry. She is started on lisinopril and hydrochlorothiazide daily. IV hydralazine as needed for blood pressure control. Cardiac diet (3) Diabetes Qualifiers: Diabetes mellitus type: type 2 Diabetes mellitus station mechanic insulin use: without longterm use Is this a current diagnosis for this admission?: Yes Plan: Patient endorses a history of diabetes mellitus; diet controlled A1C 5.8% She is placed on a cardiac/consistent carb diet. Accu-Cheks before meals and at bedtime with sliding scale insulin coverage. Hypoglycemia protocol in place. (4) Expressive aphasia Is this a current diagnosis for this admission?: Yes Plan: Management of hypertension and CVA as above. Speech therapy is consulted. (5) Left leg weakness Is this a current diagnosis for this admission?: Yes Plan: Secondary to acute CVA. Physical Therapy/Occupational Therapy are consulted. (6) TIA (transient ischemic attack) Is this a current diagnosis for this admission?: Yes Plan: Presented with TIA symptoms; slightly worsening of her left-sided weakness With expressive aphasia. Symptoms appear to be resolving. Initial head CT and MRI were negative for acute CVA. 48 hours later, her symptoms had dramatically worsened; repeat MRI showed an acute right pontine CVA. Evaluation management as above. - Time Time Spent with patient: 15-24 minutes Medications reviewed and adjusted accordingly: Yes Anticipated discharge: Acute Rehab Within: when bed available - Tuesday
[2018-10-14] MEDS: BACLOFEN 10 MG TABLET PO SCH (21:29)
[2018-10-14] MEDS: ATORVASTATIN CALCIUM 80 MG TABLET PO SCH (21:29)
[2018-10-15] MEDS: HEPARIN SOD (PORCINE) 5,000 UNIT/ML 1 ML VIAL SUBCUT SCH ×3 (05:20→21:37)
[2018-10-15 05:31] LABS: HEMATOCRIT 43.8 % (36.0-47.0); HEMOGLOBIN 14.9 g/dL (12.0-15.5); MEAN CORPUSCULAR HEMOGLOBIN 29.8 pg (27.0-33.4); MEAN CORPUSCULAR HGB CONC 34.1 g/dL (32.0-36.0); MEAN CORPUSCULAR VOLUME 87 fl (80-97); PLATELET COUNT 135 10^3/uL (150-450); RED BLOOD COUNT 5.01 10^6/uL (3.72-5.28); RED CELL DISTRIBUTION WIDTH 14.2 % (11.5-14.0); WHITE BLOOD COUNT 6.4 10^3/uL (4.0-10.5)
[2018-10-15 05:53] LABS: ANION GAP 10 (5-19); BLOOD UREA NITROGEN 19 mg/dL (7-20); CALCIUM 9.6 mg/dL (8.4-10.2); CARBON DIOXIDE 26 mmol/L (22-30); CHLORIDE 94 mmol/L (98-107); GLUCOSE 110 mg/dL (75-110); POTASSIUM 3.8 mmol/L (3.6-5.0); SODIUM 130.3 mmol/L (137-145)
[2018-10-15] MEDS: ASPIRIN 81 MG TABLET, ENT COATED PO SCH (09:49)
[2018-10-15] MEDS: FAMOTIDINE 20 MG TABLET PO SCH ×2 (09:49→21:36)
[2018-10-15] MEDS: LORATADINE 10 MG TABLET PO SCH (09:49)
[2018-10-15] MEDS: PANTOPRAZOLE SODIUM 40 MG TABLET.DR PO SCH (09:49)
[2018-10-15] MEDS: LISINOPRIL 5 MG TABLET PO SCH (09:49)
--- NOTE | 2018-10-15 14:00 | XCELERA REPORT ---
[address] [address] Transthoracic Echocardiogram Report Name: CHELO JACOB Age: 82 yrs Gender: Female : 1935 Patient Status: Inpatient Patient Location: [address] [place], [place] [id number] Study Date: 10/12/2018 07:38 PM Height: 65 in Weight: 179 lb BSA: 1.9 m2 Procedure: A two-dimensional transthoracic echocardiogram with color flow and Doppler was performed. Study Quality: Poor. The study was technically difficult with many images being suboptimal in quality. Reason For Study: Acute CVA History: CVA. Ordering Physician: RUSSELL WRIGHT Performed By: Sabra Ybarra Interpretation Summary There is no obvious cardiac source of embolus noted on this transthoracic echocardiogram. Follow-up with a MARTHA is suggested if cardiac source is still suspected. CVA The left ventricle is normal in size. There is normal left ventricular wall thickness. LV EF is > THAN 60% Left ventricular systolic function is normal. Doppler measurements suggest impaired left ventricular relaxation, which is associated with grade I/IV or mild diastolic dysfunction The left ventricular wall motion is normal. cANNOI ASSESS asd,vsd,OR pfo. Right atrium not well visualized secondary to technical limitations The left atrial size is normal. There is no evidence of mitral valve prolapse. There is no vegetation seen on the mitral valve. There is no mitral valve stenosis. There is a trace amount of mitral regurgitation There is no aortic valvular vegetation. There is aortic sclerosis without aortic stenosis. There is no LVOT obstruction. No aortic regurgitation is present. There is no tricuspid stenosis. There is a trace amount of tricuspid regurgitation Right ventricular systolic pressure is normal. rvsp IS 25 TO 30 MM OF hG , WITH ra MEAN OF 5 TO 19. The pulmonic valve is not well visualized. There is no pericardial effusion. There is no obvious cardiac source of embolus noted on this transthoracic echocardiogram. Follow-up with a MARTHA is suggested if cardiac source is still suspected MMode/2D Measurements & Calculations RVDd: 2.6 cm LVIDd: 3.8 cm FS: 28.9 % Ao root diam: 2.8 cm IVSd: 0.96 cm LVIDs: 2.7 cm EDV(Teich): Ao root area: LVPWd: 0.93 cm 61.7 ml 6.4 cm2 ESV(Teich): LA dimension: 3.1 cm 26.9 ml EF(Teich): 56.3 % LVLd ap4: 5.8 cm SV(MOD-sp4): EDV(MOD-sp4): 31.0 ml 45.0 ml LVLs ap4: 5.0 cm ESV(MOD-sp4): 14.0 ml EF(MOD-sp4): 68.9 % Doppler Measurements & Calculations MV E max mindy: MV P1/2t max mindy: Ao V2 max: LV V1 max P.0 cm/sec 63.0 cm/sec 148.3 cm/sec 3.2 mmHg MV A max mindy: MV P1/2t: 41.9 msec Ao max PG: LV V1 max: 78.7 cm/sec MVA(P1/2t): 5.3 cm2 8.8 mmHg 89.8 cm/sec MV E/A: 0.69 MV dec slope: 440.6 cm/sec2 MV dec time: 0.14 sec TV V2 max: PA V2 max: PI end-d mindy: TR max mindy: 85.1 cm/sec 97.7 cm/sec 83.0 cm/sec 224.9 cm/sec TV max P.9 mmHgPA max P.8 mmHg TR max P.2 mmHg MV P1/2t-pr_phl: 41.9 msec Left Ventricle The left ventricle is normal in size. There is normal left ventricular wall thickness. LV EF is > THAN 60%. Left ventricular systolic function is normal. Doppler measurements suggest impaired left ventricular relaxation, which is associated with grade I/IV or mild diastolic dysfunction. The left ventricular wall motion is normal. cANNOI ASSESS asd,vsd,OR pfo. Right Ventricle The right ventricle is not well visualized secondary to technical limitations. Atria Right atrium not well visualized secondary to technical limitations. The left atrial size is normal. Mitral Valve There is mild mitral annular calcification. There is no evidence of mitral valve prolapse. There is no vegetation seen on the mitral valve. There is no mitral valve stenosis. There is a trace amount of mitral regurgitation. Aortic Valve There is no aortic valvular vegetation. There is aortic sclerosis without aortic stenosis. There is no LVOT obstruction. No aortic regurgitation is present. Tricuspid Valve There is no tricuspid stenosis. There is a trace amount of tricuspid regurgitation. Right ventricular systolic pressure is normal. rvsp IS 25 TO 30 MM OF hG , WITH ra MEAN OF 5 TO 19. Pulmonic Valve The pulmonic valve is not well visualized. Great Vessels The aortic root is normal size. The inferior vena cava was not well visualized. Effusions There is no pericardial effusion. : RUSSELL WRIGHT > Margarita Moore
--- NOTE | 2018-10-15 18:16 | PDOC TRANSFER SUMMARY ---
General Admission Date/PCP: 10/12/18 16:19 ANDRE AMARO MD Admission Date: 10/09/18 Transfer Date: 10/14/18 Accepting Facility: [facility] Accepting Physician: Dr. Matt Estrada Resuscitation Status: Full Code - Transfer Diagnosis (1) Acute CVA (cerebrovascular accident) Is this a current diagnosis for this admission?: Yes Diagnosis Summary: Head CT and head MRI are negative for acute CVA; do demonstrate chronic microvascular ischemic changes. Echocardiogram is negative for hemodynamically significant stenosis. A1C and thyroid panel are acceptable. HDL 38, LDL 88, Triglycerides 157, TChol 152 Repeat MRI reveals acute nonhemorrhagic right pontine infarct suspect acute CVA occurred 10/10-10/11. Echocardiogram was negative for obvious cardiac source of embolus. LVEF >60%, mild LV diastolic dysfunction, unable to assess ASD, VSD, or PFO due to quality study. Otherwise, unremarkable study. Patient was admitted to [facility] on continuous cardiac telemetry. She was placed on daily aspirin and statin therapy. Patient reports that despite her previous CVA she was not on statin or aspirin therapy. Therefore she is appropriate to continue on those alone and does not require additional antiplatelet or anticoagulants at this time. Low suspicion for cardiac source, no history of PAF, and patient remained in NSR throughout admission; therefore there is not an indication for chronic anticoagulation at this time. PT/OT/ST consultations are requested; recommending acute rehabilitation. Dr. Matt Estrada was consulted and has offered Acute Rehab serviced at [facility]. Patient is medically stable for discharge to acute rehab. (2) Hypertensive emergency Is this a current diagnosis for this admission?: Yes Diagnosis Summary: Resolved; patient now with adequately controlled blood pressures; Denies prior history of hypertension. She was placed on a cardiac diet and started on lisinopril and hyd rochlorothiazide daily. Her sodium was noted to trend down, therefore HCTZ was discontinued. Her blood pressures remain adequate. (3) Diabetes Is this a current diagnosis for this admission?: Yes Diagnosis Summary: Patient endorses a history of diabetes mellitus; diet controlled A1C 5.8% She is placed on a cardiac/consistent carb diet. Accu-Cheks were monitored; the patient did not require SSI for hyperglycemia. Recommend continued diet control. (4) Expressive aphasia Is this a current diagnosis for this admission?: Yes Diagnosis Summary: Management of hypertension and CVA as above. Speech therapy was consulted; recommend continued services. (5) Left leg weakness Is this a current diagnosis for this admission?: Yes Diagnosis Summary: Secondary to acute CVA. Physical Therapy/Occupational Therapy were consulted; recommend acute inpatient rehab. (6) TIA (transient ischemic attack) Is this a current diagnosis for this admission?: Yes Diagnosis Summary: Presented with TIA symptoms; slightly worsening of her left-sided weakness with expressive aphasia. Symptoms appeared to be resolving. Initial head CT and MRI were negative for acute CVA. 48 hours later, her symptoms had dramatically worsened; repeat MRI showed an acute right pontine CVA. Evaluation management as above. - Transfer Medications Home Medications: Esomeprazole Magnesium 40 mg PO DAILY 10/09/18 Fexofenadine HCl [Aisha Allergy] 180 mg PO DAILY 10/09/18 Mirabegron [Myrbetriq] 25 mg PO DAILY 10/09/18 Transfer Medications: Current Medications Acetaminophen (Tylenol 325 Mg Tablet) 650 mg PO Q4HP PRN PRN Reason: Temp greater than 101F Stop: 11/08/18 13:05 Aspirin (Ecotrin 81 Mg Ec Tablet) 81 mg PO DAILY [facility] Stop: 11/09/18 09:59 Last Admin: 10/15/18 09:49 Dose: 81 mg Documented by: Atorvastatin Calcium (Lipitor 80 Mg Tablet) 40 mg PO QHS [facility] Stop: 11/08/18 21:59 Last Admin: 10/14/18 21:29 Dose: 40 mg Documented by: Baclofen (Baclofen 10 Mg Tablet) 10 mg PO QHS CARLO Stop: 11/11/18 21:59 Last Admin: 10/14/18 21:29 Dose: 10 mg Documented by: Dextrose (Dextrose Inj 50% Syringe (25 Gm/50 Ml)) 12.5 gm IV PRN PRN; Protocol PRN Reason: FOR BG 50-69 IN ALERT PATIENT Stop: 11/08/18 18:15 Dextrose (Dextrose Inj 50% Syringe (25 Gm/50 Ml)) 25 gm IV PRN PRN; Protocol PRN Reason: PER PROTOCOL Stop: 11/08/18 18:15 Docusate Sodium (Colace 100 Mg Capsule) 100 mg PO BIDP PRN PRN Reason: FOR CONSTIPATION Stop: 11/08/18 13:05 Famotidine (Pepcid 20 Mg Tablet) 20 mg PO Q12 CARLO Stop: 11/08/18 21:59 Last Admin: 10/15/18 09:49 Dose: 20 mg Documented by: Glucagon (Glucagen Inj 1 Mg Vial) 1 mg IM PRN PRN; Protocol PRN Reason: Evaluate for BG < 70 Stop: 11/08/18 18:15 Glucose (Glutose 40% Gel 15 Gm Tube) 15 gm PO PRN PRN; Protocol PRN Reason: FOR BG 50-69 IN ALERT PATIENT Stop: 11/08/18 18:15 Glucose (Glutose 40% Gel 15 Gm Tube) 30 gm PO PRN PRN; Protocol PRN Reason: FOR BG < 50 IN ALERT PATIENT Stop: 11/08/18 18:15 Heparin Sodium (Porcine) (Heparin Inj 5,000 Units/Ml 1 Ml Syringe) 5,000 unit SUBCUT Q8 CARLO Stop: 11/08/18 13:59 Last Admin: 10/15/18 14:05 Dose: 5,000 unit Documented by: Hydralazine HCl (Apresoline Inj/Pf 20 Mg/1 Ml Sdv) 10 mg IV Q4HP PRN PRN Reason: SBP>180, SBP>100 Stop: 11/08/18 13:04 Last Admin: 10/10/18 16:40 Dose: 10 mg Documented by: Lisinopril (Prinivil 5 Mg Tablet) 10 mg PO DAILY [facility] Stop: 11/10/18 09:59 Last Admin: 10/15/18 09:49 Dose: 10 mg Documented by: Loratadine (Claritin 10 Mg Tablet) 10 mg PO DAILY [facility] Stop: 11/09/18 09:59 Last Admin: 10/15/18 09:49 Dose: 10 mg Documented by: Magnesium Hydroxide (Milk Of Magnesia 30 Ml Udcup) 30 ml PO HSP PRN PRN Reason: FOR CONSTIPATION Stop: 11/08/18 13:05 Ondansetron HCl (Zofran Inj/Pf 4 Mg/2 Ml Sdv) 4 mg IV Q4HP PRN PRN Reason: FOR NAUSEA/VOMITING Stop: 11/08/18 13:05 Pantoprazole Sodium (Protonix [address] Tablet) 40 mg PO DAILY [facility] Stop: 11/09/18 09:59 Last Admin: 10/15/18 09:49 Dose: 40 mg Documented by: Patient Own Medication (Mirabegron [Myrbetriq]) 25 mg PO .DAILY [facility]LO Stop: 11/09/18 09:59 Ropinirole HCl (Requip 0.25 Mg Tablet) 0.25 mg PO TIDP PRN PRN Reason: Restless legs Stop: 11/08/18 18:41 Last Admin: 10/10/18 18:25 Dose: 0.25 mg Documented by: Sodium Chloride (Saline Flush 2.5 Ml Monoject Prefil Syrin) 2.5 ml IV Q8 CARLO Stop: 11/08/18 13:59 Last Admin: 10/15/18 14:05 Dose: 2.5 ml Documented by: Tramadol HCl (Ultram 50 Mg Tablet) 50 mg PO Q4HP PRN PRN Reason: FOR PAIN Stop: 10/16/18 13:05 - Allergies Allergies/Adverse Reactions: No Known Allergies Allergy (Verified 04/17/17 16:11) - Diet/Activity Discharge Diet: Cardiac Hospital Course Hospital Course: H&P: CHELO JACOB is a 82 year old female with a past medical history significant for prior CVA resulting in left-sided weakness and diabetes mellitus who presented to the emergency department today with a complaint of worsened left- sided weakness with slurred speech. Onset was noted this morning upon waking; last known well would have been prior to bed last night. She is outside TPA window. Symptoms have improved slightly since arrival to the emergency department; expressive aphasia does appear to wax and wane. Evaluation in the emergency department revealed hypertensive emergency with blood pressure 192/124, unremarkable laboratory evaluation, benign chest x-ray, EKG demonstrated RBBB unchanged from prior, and head CT was negative for acute CVA. She was referred to the hospitalist service for admission and management of hypertensive emergency TIA/CVA work-up. Physical Exam Vital Signs: Temp Pulse Resp BP Pulse Ox 97.6 F 70 18 147/56 H 94 10/15/18 07:08 10/15/18 07:08 10/15/18 07:08 10/15/18 07:08 10/15/18 07:08 Intake & Output 10/14/18 10/15/18 10/16/18 06:59 06:59 06:59 Intake Total 1020 800 360 Output Total 300 Balance 1020 500 360 Weight 83.9 kg 82.6 kg General appearance: PRESENT: no acute distress, cooperative - Pleasant, obese, well-developed, well-nourished Head exam: PRESENT: atraumatic, normocephalic Eye exam: PRESENT: conjunctiva pink, EOMI, PERRLA. ABSENT: scleral icterus Ear exam: PRESENT: normal external ear exam Mouth exam: PRESENT: moist, tongue midline Neck exam: ABSENT: carotid bruit, JVD, lymphadenopathy, thyromegaly Respiratory exam: PRESENT: clear to auscultation ambreen, symmetrical, unlabored. ABSENT: rales, rhonchi, wheezes Cardiovascular exam: PRESENT: RRR, +S1, +S2. ABSENT: diastolic murmur, rubs, systolic murmur Pulses: PRESENT: normal dorsalis pedis pul Vascular exam: PRESENT: normal capillary refill GI/Abdominal exam: PRESENT: normal bowel sounds, soft. ABSENT: distended, guarding, mass, organolmegaly, rebound, tenderness Rectal exam: PRESENT: deferred Extremities exam: PRESENT: full ROM. ABSENT: calf tenderness, clubbing, pedal edema Neurological exam: PRESENT: alert, awake, oriented to person, oriented to place, oriented to time, oriented to situation, CN II-XII grossly intact, other - Slight facial droop. Expressive aphasia is resolved. 0/5 strength LUE, 5/5 strength RUE. No malariologist strength on left. 0/5 left plantar flexion, 0/5 left dorsi flexion. 5/5 strength LLE. ABSENT: motor sensory deficit Psychiatric exam: PRESENT: appropriate affect, normal mood. ABSENT: homicidal ideation, suicidal ideation Skin exam: PRESENT: dry, intact, warm. ABSENT: cyanosis, rash Results Laboratory Results: 10/15/18 04:58 10/15/18 04:58 10/15/18 10/15/18 04:58 04:58 WBC 6.4 RBC 5.01 Hgb 14.9 Hct 43.8 MCV 87 MCH 29.8 MCHC 34.1 RDW 14.2 H Plt Count 135 L Sodium 130.3 L Potassium 3.8 Chloride 94 L Carbon Dioxide 26 Anion Gap 10 BUN 19 Creatinine 0.78 Est GFR ( Amer) > 60 Est GFR (Non-Af Amer) > 60 Glucose 110 Calcium 9.6 10/09/18 10/09/18 10/09/18 10:48 10:48 11:35 Creatine Kinase Cancelled 138 H CK-MB (CK-2) Cancelled Troponin I Cancelled 10/09/18 11:35 Creatine Kinase CK-MB (CK-2) 1.31 Troponin I < 0.012 Impressions: Chest X-Ray 10/09/18 10:24 IMPRESSION: NO ACUTE RADIOGRAPHIC FINDING IN THE CHEST. Head CT 10/09/18 10:24 IMPRESSION: MILD CHRONIC CHANGES OF ATROPHY AND MICROVASCULAR ISCHEMIA. NO ACUTE PROCESS. EVIDENCE OF ACUTE STROKE: NO. Carotid Doppler Study 10/09/18 13:10 IMPRESSION: NO HEMODYNAMICALLY SIGNIFICANT ICA STENOSIS.Left ECA 233 cm/s velocity. Head MRI 10/12/18 00:00 IMPRESSION: Acute nonhemorrhagic right pontine infarct. EVIDENCE OF ACUTE STROKE: Yes Plan Discharge Plan: Transfer to [facility] Acute Rehab. Time Spent: Greater than 30 Minutes
[2018-10-15] MEDS: ATORVASTATIN CALCIUM 80 MG TABLET PO SCH (21:36)
[2018-10-15] MEDS: BACLOFEN 10 MG TABLET PO SCH (21:36)
[2018-10-16] MEDS: HEPARIN SOD (PORCINE) 5,000 UNIT/ML 1 ML VIAL SUBCUT SCH (05:29)
[2018-10-16 07:55] VITALS: BP 153/61
[2018-10-16] MEDS ORDERED: LISINOPRIL 10 MG TABLET PO SCH (10:00)
== END 2018-10-16 10:25 | disposition short-term general hospital (02) | DRG 69 ==
LOC: ER 10:19 → EH 12:27 → INTOOBSV 12:27 → 3W 15:39 → OBSVTOIN 10-12 16:19 → 3N 10-13 00:43
PROVIDERS: ADMIT Internal Medicine; ATTEND Internal Medicine
DX: G45.9 Transient cerebral ischemic attack, unspecified (principal); R47.01 Aphasia; G83.14 Monoplegia of lower limb affecting left nondominant side; I50.89 Other heart failure; E03.9 Hypothyroidism, unspecified; I10 Essential (primary) hypertension; K21.9 Gastro-esophageal reflux disease without esophagitis; Z87.891 Personal history of nicotine dependence; R47.81 Slurred speech; R27.0 Ataxia, unspecified; E11.8 Type 2 diabetes mellitus with unspecified complications; I16.0 Hypertensive urgency; R29.703 NIHSS score 3; I45.10 Unspecified right bundle-branch block
CPT/HCPCS: 36415; 70450; 70551; 71045; 80048; 80053; 80061; 81001; 82550; 82553; 82962; 83036; 84443; 84484; 85025; 85027; 85610; 85730; 93005; 93010; 93306; 93880; 99285; G0378; J0360; J1644; J3490; L4386